=== PATIENT | male | born 1970 | race Two or more races ===

== ENCOUNTER 2018-08-25 14:27 | Emergency (ER) | payer OTHER ==
[2018-08-25 14:32] VITALS: BP 145/80; PULSE 103; TEMP 98.1; BMI 43.3
--- NOTE | 2018-08-25 15:03 | PDOC ---
History of Present Illness - General Chief Complaint: Respiratory Stated Complaint: FLU SYSMPTOMS Time Seen by Provider: 08/25/18 14:34 History Source: Patient Exam Limitations: No Limitations Past History - Past Medical History Allergies/Adverse Reactions: Allergies Allergy/AdvReac Type Severity Reaction Status Date / Time No Known Allergies Allergy Verified 08/25/18 14:32 Home Medications: Ambulatory Orders Aspirin [Ecotrin] 81 mg PO DAILY 01/15/16 Lisinopril [Zestril] 5 mg PO DAILY 01/15/16 COPD: No GI Disorders: Yes (DIVERTICULITIS) HTN: Yes Hypercholesterolemia: Yes - Surgical History Abdominal Surgery: Yes (COLOSTOMY) - Suicide/Smoking/Psychosocial Hx Smoking History: Never smoked Hx Alcohol Use: No Drug/Substance Use Hx: No Substance Use Type: None *Physical Exam - Vital Signs Last Vital Signs Temp Pulse Resp BP Pulse Ox 98.1 F 103 H 20 145/80 99 08/25/18 14:29 08/25/18 14:29 08/25/18 14:29 08/25/18 14:29 08/25/18 14:29 - Physical Exam General Appearance: No: Apparent Distress HEENT: positive: Nasal Congestion, Rhinorrhea (slight), Other (+postnasal drip) . negative: Muffled/Hoarse voice, Pharyngeal Erythema, Tonsillar Exudate, Sinus Tenderness Respiratory/Chest: positive: Lungs Clear, Normal Breath Sounds. negative: Respiratory Distress Cardiovascular: positive: Regular Rhythm, Regular Rate, S1, S2. negative: Murmur Extremity: positive: Normal Inspection. negative: Pedal Edema, Calf Tenderness Neurologic: positive: Alert, Normal Mood/Affect Moderate Sedation - Procedure Monitoring Vital Signs: Procedure Monitoring Vital Signs Temperature 98.1 F 08/25/18 14:29 Pulse Rate 103 H 08/25/18 14:29 Respiratory Rate 20 08/25/18 14:29 Blood Pressure 145/80 08/25/18 14:29 O2 Sat by Pulse Oximetry (%) 99 08/25/18 14:29 Medical Decision Making - Medical Decision Making 48 y/o M hx of HTN, DM, diverticulitis s/p colostomy (around 7 years ago) presents with productive cough x 3 days along with nasal congestion, rhinorrhea. Went to yesterday, diagnosed with allergic rhinitis, and given rx for Flonase and Singulair, but has not noticed much help with that (has only used meds 1 thus far). Denies fever, sob, cp, abd pain, n/v/d, sore throat, body aches, chills. Did not take antipyretics today PE consistent with allergic rhinitis Supportive care discussed 08/25/18 14:58 *DC/Admit/Observation/Transfer Diagnosis at time of Disposition: Allergic rhinitis Qualifiers: Allergic rhinitis trigger: unspecified Allergic rhinitis seasonality: unspecified Qualified Code(s): J30.9 - Allergic rhinitis, unspecified - Discharge Dispostion Disposition: HOME Condition at time of disposition: Stable Decision to Admit order: No - Referrals Referrals: ON STAFF,NOT [Primary Care Provider] - - Patient Instructions Printed Discharge Instructions: DI for Allergic Rhinitis Additional Instructions: Thank you for choosing [facility]. It was a pleasure taking care of you. Likely you have allergies. Your coughing is from the postnasal drip Continue the Flonase spray and Singulair Can also try the Nedi-pot - helps alleviate congestion Use humidifier at night if needed Can also try Zyrtec or Claritin as needed to help with allergies Follow-up with your doctor in 2-3 days Return to the Emergency Department if your symptoms worsen or persist or have other concerning symptoms. - Post Discharge Activity
== END 2018-08-25 15:09 | disposition home or self-care (01) ==
LOC: JERFT 14:27
DX: J30.9 Allergic rhinitis, unspecified (principal)
CPT/HCPCS: 99281-25

== ENCOUNTER 2020-03-09 08:34 | Inpatient (IN) | payer OTHER ==
--- NOTE | 2020-03-09 08:45 | PDOC ---
History of Present Illness - General Chief Complaint: Pain, Acute Stated Complaint: LWR BACK PAIN (EXTREME) Time Seen by Provider: 03/09/20 08:44 - History of Present Illness Initial Comments: 49 YOM h/o diabetes, colostomy, htn presents with abdominal pain since 12 am. Pain is located in back and abdomen on right side, 9/10, nothing makes better or worse, also with nausea, chills and shortness of breath. Denies CP, fever, vomi ting, diarrhea. Blood in stool. Unable to urinate since this time. Previously observed blood in urine. Was dcd by Dr Ramirez with stone 2 weeks prior, was scheduled for management March,. Symptoms resolved until last night. Now pain unbearable. Constitutional: No Weight Change, No Fever, + Chills, No Night Sweats, No Fatigue, No Malaise ENT/Mouth: No Hearing Changes, No Ear Pain, No Nasal Congestion, No Sinus Pain, No Hoarseness, No sore throat, No Rhinorrhea, No Swallowing Difficulty Eyes: No Eye Pain, No Swelling, No Redness, No Foreign Body, No Discharge, No Vision Changes Cardiovascular: No Chest Pain, + SOB, No PND, No Dyspnea on Exertion, No Orthopnea, No Claudication, No Edema, No Palpitations Respiratory: No Cough, No Sputum, No Wheezing, No Smoke Exposure, No Dyspnea Gastrointestinal: + Nausea, No Vomiting, No Diarrhea, No Constipation, + Pain, No Heartburn, No Anorexia, No Dysphagia, No Hematochezia, No Melena, No Flatulence, No Jaundice Genitourinary: No Dysmenorrhea, No DUB, No Dyspareunia, No Dysuria, + Urinary Frequency, + Hematuria, No Urinary Incontinence, + Urgency, No Flank Pain, No Urinary Flow Changes, No Hesitancy Musculoskeletal: No Arthralgias, No Myalgias, No Joint Swelling, No Joint Stiffness, No Back Pain, No Neck Pain, No Injury History Skin: No Skin Lesions, No Pruritis, No Hair Changes, No Breast/Skin Changes, No Nipple Discharge Neuro: No Weakness, No Numbness, No Paresthesias, No Loss of Consciousness, No Syncope, No Dizziness, No Headache, No Coordination Changes, No Recent Falls Psych: No Anxiety/Panic, No Depression, No Insomnia, No Personality Changes, No Delusions, No Rumination, No SI/HI/AH/VH, No Social Issues, No Memory Changes, No Violence/Abuse Hx., No Eating Concerns Heme/Lymph: No Bruising, No Bleeding, No Transfusions History, No Lymphadenopathy Endocrine: No Polyuria, No Polydipsia, No Temperature Intolerance 03/09/20 09:16 Past History - Medical History Allergies/Adverse Reactions: Allergies Allergy/AdvReac Type Severity Reaction Status Date / Time pollen extracts Allergy Verified 03/09/20 17:29 Home Medications: Ambulatory Orders Lisinopril [Zestril] 10 mg PO DAILY 01/15/16 Tamsulosin HCl 0.4 mg PO DAILY 03/09/20 metFORMIN HCL [Metformin HCl] 500 mg PO BID 03/09/20 Ketorolac Tromethamine 10 mg PO Q6H #12 tablet 03/11/20 Nitrofurantoin Monohyd/M-Cryst [Macrobid -] 100 mg PO BID #20 capsule 03/11/20 Oxybutynin Chloride [Oxybutynin Chloride ER] 10 mg PO DAILY #7 tab.er.[id number] 01/21 COPD: No Diabetes: Yes GI Disorders: Yes (DIVERTICULITIS) HTN: Yes Hypercholesterolemia: Yes - Surgical History Abdominal Surgery: Yes (COLOSTOMY) - Immunization History Immunization Up to Date: Yes - Psycho-Social/Smoking History Smoking History: Never smoked - Substance Abuse Hx (Audit-C & DAST Scrn) How often the patient has a drink containing alcohol: Never Score: In Men: 4 or > Positive; In Women: 3 or > Positive: 0 Screen Result (Pos requires Nsg. Audit-10AR): Negative In the last yr the pt used illegal drug/Rx for NonMed reason: No Score: Yes response is considered Positive: 0 Screen Result (Positive result requires Nsg. DAST-10): Negative *Physical Exam - Vital Signs Last Vital Signs Temp Pulse Resp BP Pulse Ox 98.3 F 72 18 151/87 99 03/09/20 08:36 03/09/20 08:36 03/09/20 08:36 03/09/20 08:36 03/09/20 08:36 - Physical Exam General Appearance: Yes: Nourished, Appropriately Dressed, Apparent Distress, Other (Patient is shifting position frequently in bed unable to find comfortable position, appears in significant discomfort) HEENT: positive: EOMI, RUFINA, Normal ENT Inspection, Normal Voice, Symmetrical, TMs Normal, Pharynx Normal Neck: positive: Trachea midline, Normal Thyroid, Supple Respiratory/Chest: positive: Lungs Clear, Normal Breath Sounds, Respiratory Distress, Accessory Muscle Use Cardiovascular: positive: Regular Rhythm, Regular Rate, S1, S2 Gastrointestinal/Abdominal: positive: Normal Bowel Sounds, Tender, Flat, Soft, Tenderness Musculoskeletal: positive: Normal Inspection, CVA Tenderness Extremity: positive: Normal Capillary Refill, Normal Inspection, Normal Range of Motion Integumentary: positive: Normal Color, Dry, Warm Neurologic: positive: cloth weaver II-XII NML intact, Fully Oriented, Alert, Normal Mood/Affect, Normal Response, Motor Strength 10/06 ED Treatment Course - LABORATORY CBC & Chemistry Diagram: 03/11/20 07:06 03/11/20 07:06 Medical Decision Making - Medical Decision Making 49 YOM presents with right sided abdominal pain since midnight last night - vitals wnl - exam reveals obese male, writhing in bed, unable to find comfortable position, positive for TTP along right flank and right CVA tenderness - h/o recent kidney stone diagnosis, multiple CV and GI risk factors - will do CBC, CMP, BG, lipase, lacte, type and screen, coags, CXR, EKG, CT ab domen and pelvis with contrast - 6 mg morphine for pain control given patients size and intensity of reported pain - will reassess 03/09/20 10:52 patient has white count of 20.6 will give IV toradol 30mgs EKG shows normal sinus RRR 03/09/20 13:01 cxr shows new density medial right base UA 3+ blood 03/09/20 13:02 03/09/20 13:05 03/09/20 13:21 CT demonstrates .4cm stone with hydronephrosis on right side will call Dr. Ramirez and appreciate recs 03/09/20 13:25 Spoke with attending covering Dr. Ramirez patient who recommended admission for IV abx with [facility] Discharge - Discharge Information Problems reviewed: Yes Clinical Impression/Diagnosis: Kidney stone, Perinephric fluid collection Leukocytosis Qualifiers: Leukocytosis type: unspecified Qualified Code(s): D72.829 - Elevated white blood cell count, unspecified Condition: Improved Disposition: HOME - Follow up/Referral - Patient Discharge Instructions - Post Discharge Activity
[2020-03-09] MEDS ORDERED: morphine SULFATE 4 MG/ML VIAL IVPUSH ONE (09:00)
[2020-03-09] MEDS ORDERED: LACTATED RINGERS SOLUTION 1000 ML INFUS.BAG IV ONE (09:12)
[2020-03-09] MEDS ORDERED: morphine SULFATE 4 MG/ML VIAL ONE (09:25)
[2020-03-09] MEDS ORDERED: MORPHINE SULFATE 2 MG/ML VIAL ONE (09:25)
[2020-03-09 09:27] LABS: BASO % 0.4 % (0-2.0); EOS % 0.3 % (0-4.5); HEMATOCRIT 43.6 % (35.4-49); HEMOGLOBIN 14.2 GM/dL (11.7-16.9); LYMPH % 8.3 % (8-40); MCH 28.2 pg (25.7-33.7); MCHC 32.6 g/dl (32.0-35.9); MEAN CELL VOLUME 86.5 fl (80-96); MEAN PLT VOLUME 10.2 fl (7.5-11.1); MONO % 4.9 % (3.8-10.2); NEUT % 86.1 % (42.8-82.8); PLATELET COUNT 229 K/MM3 (134-434); RBC 5.04 M/mm3 (4.00-5.60); RDW 13.4 % (11.9-15.9); WHITE BLOOD COUNT 20.6 K/mm3 (4.0-10.0)
--- NOTE | 2020-03-09 09:31 | PDOC ---
Attending Attestation - Resident Resident Name: Yousuf Walton - ED Attending Attestation I have performed the following: I have examined & evaluated the patient, The case was reviewed & discussed with the resident, I agree w/resident's findings & plan, Exceptions are as noted - HPI HPI: 49 yo M history DM, colostomy, HTN presents with abdominal pain that started while he was working at 12am. Patient is a maintenance truck driver. Pain was abrupt onset, severe, sharp, localized to R upper abdomen and back, radiating down to R groin. +History of prior kidney stone. - Physicial Exam PE: GENERAL: Awake, alert, and fully oriented, in no acute distress HEAD: No signs of trauma EYES: PERRLA, EOMI, sclera anicteric, conjunctiva clear ENT: Auricles normal inspection, hearing grossly normal, nares patent, oroph arynx clear without exudates. Moist mucosa NECK: Normal ROM, supple, no lymphadenopathy, JVD, or masses LUNGS: Breath sounds equal, clear to auscultation bilaterally. No wheezes, and no crackles HEART: Regular rate and rhythm, normal S1 and S2, no murmurs, rubs or gallops ABDOMEN: +Large midline incision, well-healed. +Colostomy to L mid-abdomen. No stool in the bag. Soft, normoactive bowel sounds. +Tenderness to R mid-abdomen and R CVA. No guarding, no rebound. No masses EXTREMITIES: Normal range of motion, no edema. No clubbing or cyanosis. No cords, erythema, or tenderness NEUROLOGICAL: Cranial nerves II through XII grossly intact. Normal speech, normal gait. Motor and sensation intact SKIN: Warm, dry, normal turgor, no rashes or lesions noted. - Medical Decision Making Pt presents with suspected kidney stone vs infected stone. In light of his extensive surgical history, however, the DDx is broad. Will obtain labs, UA, and spiral CT to further evaluate. Addendum- CT showed fluid collection around the kidney, stone. Case to be d/w Dr. Ramirez. Plan for admission based on stone, fluid collection, and significant leukocytosis. Discharge - Discharge Information Problems reviewed: Yes Clinical Impression/Diagnosis: Kidney stone, Perinephric fluid collection Leukocytosis Qualifiers: Leukocytosis type: unspecified Qualified Code(s): D72.829 - Elevated white blood cell count, unspecified - Follow up/Referral - Patient Discharge Instructions - Post Discharge Activity
[2020-03-09 09:36] LABS: INR 0.92 (0.83-1.09); PROTHROMBIN TIME (PATIENT) 10.8 SEC (9.7-13.0)
[2020-03-09 09:39] LABS: ACTIVATED PTT 34.1 SECONDS (25.2-36.5)
--- OUTSIDE RECORDS SUMMARY | 2020-03-09 09:45 | XMS ---
:1970 Author Organization [facility] Care Team Providers Name Role Phone ROSIE RODRIGUEZFAROOQMICHAELFAROOQ Unavailable Unavailable Re-disclosure Warning The records that you are about to access may contain information from federally- assisted alcohol or drug abuse programs. If such information is present, then the following federally mandated warning applies: This information has been disclosed to you from records protected by federal confidentiality rules (42 CFR part 2). The federal rules prohibit you from making any further disclosure of this information unless further disclosure is expressly permitted by the written consent of the person to whom it pertains or as otherwise permitted by 42 CFR part 2. A general authorization for the release of medical or other information is NOT sufficient for this purpose. The Federal rules restrict any use of the information to criminally investigate or prosecute any alcohol or drug abuse patient.The records that you are about to access may contain highly sensitive health information, the redisclosure of which is protected by Article 27-F of the [facility] Public Health law. If you continue you may haveaccess to information: Regarding HIV / AIDS; Provided by facilities licensed or operated by the [facility] Office of Mental Health; or Provided by the [facility] Office for People With Developmental Disabilities. If such information is present, then the following [facility] mandated warning applies: This information has been disclosed to you from confidential records which are protected by state law. State law prohibits you from making any further disclosure of this information without the specific written consent of the person to whom it pertains, or as otherwise permitted by law. Any unauthorized further disclosure in violation of state law may result in a fine or penitentiary sentence or both. A general authorization for the release of medical or other information is NOT sufficient authorization for further disclosure. Allergies and Adverse Reactions Type Description Substance Reaction Status Data Source(s ) Food allergy no red meat no red meat Vomiting [facility] Food allergy pollen pollen [facility] Drug allergy No Known Drug No Known Drug [facility] Allergies Allergies [facility] Encounters Encounter Providers Location Date Indications Data Source(s ) Emergency H 02/03/2019 12:22:00 [facility] EDT - 02/03/2019 [facility] 04:31:00 PM EDT Patient discharged. Emergency H 02/01/2019 08:00:00 PM EDT - 019 [facility] 03:14:00 AM EDT Patient discharged. [facility]: [facility] 08/23/2018 01:03:00 PM [facility] 12:00:00 AM [facility] Medications Medication Brand Start Product Dose Route Administrative Pharmacy [facility] Indications Reaction Description Data Name Date Form Instructions Instructions Source(s) Ibuprofen ibupro 1 complet [facility] 400 MG Oral [facility] Tablet 400 mg Medical ibuprofen Tablet [place] 400 mg , Tablet, Ordere Ordered By: d By: Moose Potter MDDirection , s: 1 tablet MDDire oral every ctions six hours : 1 PRN pain tablet oral every six hours PRN pain Insurance Providers Payer name Policy type Policy ID Covered Covered republican's Policy P jass / Coverage republican ID relationship to [employer] Inf ormation type calero O XIOMARA O [id number] 01 [id number] 100 ESSENTIALS- COMMERCIAL XIOMARA W [id number] 01 [id number] 100 XIOMARA [id number] SP [id number] HEALTH NON CAP Problems, Conditions, and Diagnoses Code Display Name Description Problem Type Effective Data Sour ce(s) Dates Z87.891 Personal history PERSONAL HISTORY Diagnosis 02/03/2019 [facility] of nicotine OF NICOTINE 12:22:[address] dependence DEPENDENCE EDT I10 Essential ESSENTIAL Diagnosis 02/03/2019 [facility] (primary) (PRIMARY) 12:22:00 [facility] hypertension HYPERTENSION EDT E11.9 Type 2 diabetes TYPE 2 DIABETES Diagnosis 02/03/2019 [facility] mellitus without MELLITUS WITHOUT 12:22:00 PM edical Center complications COMPLICATIONS EDT R19.5 Other fecal OTHER FECAL Diagnosis 02/03/2019 [facility] abnormalities ABNORMALITIES 12:22:00 PM [facility] EDT Z43.3 Encounter for ENCOUNTER FOR Diagnosis 02/03/2019 [facility] attention to ATTENTION TO 12:22:00 PM Medical C enter colostomy COLOSTOMY EDT M25.561 Pain in right knee PAIN IN RIGHT KNEE Diagnosis 9 [facility] 08:00:00 PM Medical Cent[facility] r EDT M79.18 MYALGIA, OTHER MYALGIA, OTHER Diagnosis 02/01/2019 [facility] SITE SITE 08:00:00 PM Medical Cente r EDT M79.606 Pain in leg, PAIN IN LEG, Diagnosis 02/01/2019 [facility] Eber phs unspecified UNSPECIFIED 08:00:[address] EDT Results ID Date Data Source [id number] 09/16/2019 12:00:00 AM EDT [facility] Name Value Range Interpretation Code Description Data Catalina rce(s) Supporting Document(s ) [facility] XXX SINDY+probe- Imp This lab was ordered by [facility] MON[facility] and reported by [employer] ID Date Data Source Urinalysis.[id number] 02/03/2019 02:08:00 PM EDT [facility] 0 Name Value Range Interpretation Description Data Sup porting Code Source(s) Document(s ) Color of Urine YELLOW <content Saint styleCode="Denise Alyssia d">Color, Medical Urine Center </content>YELL OW <content styleCode="Emeli lics"> (YELLOW )</content> UNK CLEAR <content Saint styleCode="Denise Alyssia d">Urine Medical Clarity Center </content>SHANTI R <content styleCode="Emeli lics"> (CLEAR )</content> Glucose NEGATIVE <content Saint [Mass/volume] styleCode="Denise Alyssia in Urine by d">Urine Medical Test strip Glucose Center </content>NEGA TIVE MG/DL<content styleCode="Emeli lics"> (NEGATIVE MG/DL)</conten t> Protein NEGATIVE <content Saint [Mass/volume] styleCode="Denise Alyssia in Urine by d">Urine Medical Test strip Protein Center </content>NEGA TIVE MG/DL<content styleCode="Emeli lics"> (NEGATIVE MG/DL)</conten t> pH of Urine by 4.5-8.0 <content Saint Test strip styleCode="Denise Alyssia d">Urine pH Medical </content>6.0 Center <content styleCode="Emeli lics"> (4.5-8.0 )</content> Hemoglobin NEGATIVE <content Saint [Presence] in styleCode="Denise Alyssia Urine by Test d">Urine Blood Medical strip </content>NEGA Center TIVE <content styleCode="Emeli lics"> (NEGATIVE )</content> UNK NEGATIVE <content Saint styleCode="Denise Alyssia d">Urine Medical Bilirubin Center </content>NEGA TIVE <content styleCode="Emeli lics"> (NEGATIVE )</content> Ketones NEGATIVE <content Saint [Mass/volume] styleCode="Denise Alyssia in Urine by d">Urine Medical Test strip Ketone Center </content>NEGA TIVE MG/DL<content styleCode="Emeli lics"> (NEGATIVE MG/DL)</conten t> Specific 1.015-1.02 <content Saint gravity of 5 styleCode="Denise Vaughns Urine by Test d">Urine Medical strip Specific Center [place] </content>1.02 5 <content styleCode="Emeli lics"> (1.015-1.025 )</content> Nitrite NEGATIVE <content Saint [Presence] in styleCode="Denise Vaughns Urine by Test d">Urine Medical strip Nitrite Center </content>NEGA TIVE <content styleCode="Emeli lics"> (NEGATIVE )</content> Urobilinogen 0.2-1.0 <content Saint [Units/volume] styleCode="Denise Alyssia in Urine by d">Urine Medical Test strip Urobilinogen Center </content>0.2 MG/DL<content styleCode="Emeli lics"> (0.2-1.0 MG/DL)</conten t> Leukocyte NEGATIVE <content Saint esterase styleCode="Denise Alyssia [Presence] in d">Urine Medical Urine by Test Leukocyte Center strip </content>NEGA TIVE <content styleCode="Emeli lics"> (NEGATIVE )</content> ID Date Data Source HematologyRou.[id number] 02/03/2019 01:01:00 PM EDT [facility] 0400 Name Value Range Interpretation Description Data Sup porting Code Source(s) Document(s ) Leukocytes 4.4-11.0 <content Saint [#/volume] in styleCode="Bold Alyssia Blood by ">White Blood Medical Automated count Cell Count Center </content>10.07 KCUMM<content styleCode="Ital ics"> (4.4-11.0 KCUMM)</content > Hemoglobin 13.5-17. <content Saint [Mass/volume] in 5 styleCode="Bold Alyssia Blood ">Hemoglobin Medical </content>14.0 Center G/DL<content styleCode="Ital ics"> (13.5-17.5 G/DL)</content> Hematocrit 41.0-53. <content Saint [Volume 0 styleCode="Bold Alyssia Fraction] of ">Hematocrit Medical Blood by </content>44.1 Center Automated count %<content styleCode="Ital ics"> (41.0-53.0 %)</content> Erythrocyte mean 80.0-100 <content Saint corpuscular .0 styleCode="Bold Alyssia volume [Entitic ">Mean Medical volume] by Corpuscular Center Automated count Volume </content>87.8 FL<content styleCode="Ital ics"> (80.0-100.0 FL)</content> Erythrocyte mean 26.0-34. <content Saint corpuscular 0 styleCode="Bold Alyssia hemoglobin ">Mean Medical [Entitic mass] Corposcular Center by Automated Hemoglobin count </content>27.9 PG<content styleCode="Ital ics"> (26.0-34.0 PG)</content> Erythrocytes 4.4-5.9 <content Saint [#/volume] in styleCode="Bold Alyssia Blood by ">Red Blood Medical Automated count Cell Count Center </content>5.02 MCUMM<content styleCode="Ital ics"> (4.4-5.9 MCUMM)</content > Erythrocyte 11.5-14. <content Saint distribution 5 styleCode="Bold Alyssia width [Ratio] by ">Red Cell Medical Automated count Distribution Center Width </content>13.3 %<content styleCode="Ital ics"> (11.5-14.5 %)</content> Platelet mean 8.0-11.0 Above high <content Saint volume [Entitic normal styleCode="Bold Alyssia volume] in Blood ">Mean Platelet Medical by Automated Volume Center count </content>11.8 FL H<content styleCode="Ital ics"> (8.0-11.0 FL)</content> Erythrocyte mean 32.0-37. Below low normal <content Saint corpuscular 0 styleCode="Bold Alyssia hemoglobin ">Mean Corpus. Medical concentration Hgb Center [Mass/volume] by Concentration Automated count (MCHC) </content>31.7 G/DL L<content styleCode="Ital ics"> (32.0-37.0 G/DL)</content> UNK 0 <content Saint styleCode="Bold Alyssia ">Nucleated Red Medical Blood Cell Center </content>0.0 /100<content styleCode="Ital ics"> (0 /100)</content> Platelets 130-400 <content Saint [#/volume] in styleCode="Bold Alyssia Blood by ">Platelet Medical Automated count Count Center </content>226 KCUMM<content styleCode="Ital ics"> (130-400 KCUMM)</content > UNK 0.0 <content Saint styleCode="Bold Alyssia ">Nucleated Red Medical Blood Cell Center Count </content>0.00 KCUMM<content styleCode="Ital ics"> (0.0 KCUMM)</content > ID Date Data Source GFR(Creatinine).[id number] 02/03/2019 01:01:00 PM EDT [facility] 0-0400 Name Value Range Interpretation Code Description Data Catalina rce(s) Supporting Document(s ) UNK > 60 <content [facility] styleCode="Bold"> Medical Cent er EGFR </content>128 GFR<content styleCode="Italic s"> (> 60 GFR)</content> ID Date Data Source Coagulation 02/03/2019 01:01:00 PM [facility] Rout.[id number] EDT Name Value Range Interpretation Description Data Sup porting Code Source(s) Document(s ) UNK 9.0-13.0 <content Saint styleCode="Bold" Alyssia >Protime Medical </content>10.6 Center SEC<content styleCode="Itali cs"> (9.0-13.0 SEC)</content> aPTT in 25.1-36. <content Saint Platelet poor 5 styleCode="Bold" Alyssia plasma by >Partial Medical Coagulation Thromboplastin Center assay Time </content>32.9 SEC<content styleCode="Itali cs"> (25.1-36.5 SEC)</content> INR in 0.80-1.2 <content Saint Platelet poor 0 styleCode="Bold" Alyssia plasma by >INR Medical Coagulation </content>0.95 Center assay #<content styleCode="Itali cs"> (0.80-1.20 #)</content> ID Date Data Source BMP.[id number] 02/03/2019 01:01:00 PM EDT [facility] Name Value Range Interpretation Description Data Sup porting Code Source(s) Document(s ) Sodium 137-145 <content Saint [Moles/volume] styleCode="Denise Alyssia in Serum or d">Sodium Medical Plasma </content>139 Center MEQ/L<content styleCode="Emeli lics"> (137-145 MEQ/L)</conten t> Potassium 3.5-5.3 <content Saint [Moles/volume] styleCode="Denise Alyssia in Serum or d">Potassium Medical Plasma </content>4.5 Center MEQ/L<content styleCode="Emeli lics"> (3.5-5.3 MEQ/L)</conten t> UNK 9-20 <content Saint styleCode="Denise Alyssia d">BUN Medical </content>19 Center MG/DL<content styleCode="Emeli lics"> (9-20 MG/DL)</conten t> Glucose 74-106 <content Saint [Mass/volume] styleCode="Denise Vaughns in Serum or d">Glucose Medical Plasma </content>88 Center MG/DL<content styleCode="Emeli lics"> (74-106 MG/DL)</conten t> Creatinine 0.5-1.3 <content Saint [Mass/volume] styleCode="Denise Vaughns in Serum or d">Creatinine Medical Plasma </content>0.7 Center MG/DL<content styleCode="Emeli lics"> (0.5-1.3 MG/DL)</conten t> Carbon 22-30 <content Saint dioxide, total styleCode="Denise Cade [Moles/volume] d">Carbon Medical in Serum or Dioxide Center Plasma </content>24 MEQ/L<content styleCode="Emeli lics"> (22-30 MEQ/L)</conten t> Chloride 98-107 <content Saint [Moles/volume] styleCode="Denise Vaughns in Serum or d">Chloride Medical Plasma </content>105 Center MEQ/L<content styleCode="Emeli lics"> (98-107 MEQ/L)</conten t> Calcium 8.4-10.2 <content Saint [Mass/volume] styleCode="Denise Vaughns in Serum or d">Calcium Medical Plasma </content>9.5 Center MG/DL<content styleCode="Emeli lics"> (8.4-10.2 MG/DL)</conten t> UNK > 60 <content Saint styleCode="Denise Vaughns d">EGFR Medical </content>128 Center GFR<content styleCode="Emeli lics"> (> 60 GFR)</content> Procedure Social History Code Duration Value Status Description Data Source(s ) Smoking 02/03/2019 12:53:00 Former Smoker completed Former Smoker [facility] Smoking 02/03/2019 12:34:00 Former Smoker completed Former Smoker [facility] Smoking 02/01/2019 09:05:00 Former Smoker completed Former Smoker [facility] Smoking 02/01/2019 08:58:00 Former Smoker completed Former Smoker [facility] Smoking 02/01/2019 08:04:00 Former Smoker completed Former Smoker [facility] Vital Signs ID Date Data Source UNK Name Value Range Interpretation Code Description Data Source(s) Body temperature 36.464679 36.600050 [facility] Respiratory rate 18 /min 18 /min [facility] Oxygen saturation 98 % 98 % [facility] Arterial blood [facility] by Pulse oximetry Heart rate 68 /min 68 /min [facility] Diastolic blood 92 mm[Hg] 92 mm[Hg] [facility] Systolic blood 141 mm[Hg] 141 mm[Hg] [facility] Body temperature 36.004750 36.365418 [facility] Respiratory rate 20 /min 20 /min [facility] Oxygen saturation 95 % 95 % [facility] Arterial blood [facility] Center by Pulse oximetry Heart rate 71 /min 71 /min [facility] Diastolic blood 95 mm[Hg] 95 mm[Hg] [facility] Systolic blood 142 mm[Hg] 142 mm[Hg] [facility] Body weight 136.539928 136.827745 kg [facility] Measured kg Medical Center Body temperature 36.936344 36.769894 [facility] Respiratory rate 20 /min 20 /min [facility] Oxygen saturation 96 % 96 % [facility] by Pulse oximetry Heart rate 86 /min 86 /min [facility] Diastolic blood 94 mm[Hg] 94 mm[Hg] [facility] Systolic blood 154 mm[Hg] 154 mm[Hg] [facility] Patient Treatment Plan of Care Planned Activity Planned Date Details Description Data Source (s) Ibuprofen 400 MG Oral [facility]
[2020-03-09 10:06] LABS: ALBUMIN 3.7 g/dl (3.4-5.0); ALK PHOS 87 U/L (45-117); ANION GAP 10 MMOL/L (8-16); BILIRUBIN,TOTAL 0.3 mg/dL (0.2-1); BLOOD UREA NITROGEN 15.9 mg/dL (7-18); CHLORIDE 104 mmol/L (98-107); CO2 22 mmol/L (21-32); CREATININE 1.2 mg/dL (0.55-1.3); GLUCOSE,RANDOM 115 mg/dL (74-106); LIPASE 71 U/L (73-393); POTASSIUM 4.5 mmol/L (3.5-5.1); SGOT/AST 25 U/L (15-37); SGPT/ALT 38 U/L (13-61); SODIUM 137 mmol/L (136-145)
[2020-03-09 10:35] LABS: ANISOCYTOSIS 0; MACROCYTOSIS 0; PLATELET ESTIMATE NORMAL
[2020-03-09] MEDS ORDERED: KETOROLAC TROMETHAMINE 30 MG/1 ML VIAL IVPUSH ONE (10:53)
[2020-03-09] MEDS ORDERED: KETOROLAC TROMETHAMINE 30 MG/1 ML VIAL ONE (11:05)
[2020-03-09 11:10] LABS: EPI CELLS 5 /uL (0-25.1); HYALINE CASTS 2 /uL (0-3.1); URINE APPEARANCE CLEAR; URINE BACTERIA 4 /uL (0-1359); URINE BILIRUBIN NEGATIVE (NEGATIVE); URINE COLOR YELLOW; URINE GLUCOSE (UA) NEGATIVE (NEGATIVE); URINE KETONE NEGATIVE (NEGATIVE); URINE LEUK ESTERASE NEGATIVE (NEGATIVE); URINE NITRITE NEGATIVE (NEGATIVE); URINE PROTEIN 1+ (NEGATIVE); URINE RBC 659 /uL (0-23.9); URINE UROBILINOGEN 0.2 mg/dL (0.2-1.0); URINE WBC 10 /uL (0-25.8)
[2020-03-09] MEDS ORDERED: CEFAZOLIN 1 GM in DEXTROSE 5%-WATER - 50 ML IVPB ONE (13:26)
[2020-03-09] MEDS ORDERED: CEFAZOLIN 1 GM/D5W 1 GM/50 ML BAG ONE (14:21)
--- NOTE | 2020-03-09 14:22 | HP ---
<Jj Bird - Last Filed: 03/10/20 06:40> CHIEF COMPLAINT: right flank pain PCP: HISTORY OF PRESENT ILLNESS: Patient is a 49 year old male with history of nephrolithiasis, hypertension, diabetes mellitus (non insulin dependent), diverticulitis (s/p colostomy), presents with complaint of right flank pain. Endorses pain began last night and was sharp, waxing and waning pain that has progressively worsened. He endorses dysuria last night with an episode of difficulty passing urine. He states that he is currently passing urine in the ED with improvement of the dysuria. He endorses a cystoscopy performed two weeks ago at his urologist office where he was evaluated for hematuria, and was told this was secondary to nephrolithiasis. Patient denies subjective fevers, chills, shortness of breath, chest pain, palpitations, abdominal pain, vomiting. ER course was notable for: (1) CT abdomen pelvis (2) (3) Recent Travel: denies PAST MEDICAL HISTORY: nephrolithiasis, hypertension, diabetes mellitus, diverticulitis PAST SURGICAL HISTORY: colostomy (at 40 years old) Social History: Lives with . Works as a forklift driver. Independent in activities of daily living Smoking: Former smoker, quit 13 years ago. Endorses approx 10 pack year history. Alcohol: Denies alcohol consumption Drugs: Denies illicit drug use Allergies No Known Allergies Allergy (Verified 03/09/20 08:36) HOME MEDICATIONS: Home Medications Medication Instructions Recorded Aspirin [Ecotrin] 81 mg PO DAILY 01/15/16 Lisinopril [Zestril] 5 mg PO DAILY 01/15/16 REVIEW OF SYSTEMS As per HPI PHYSICAL EXAMINATION Vital Signs - 24 hr 03/09/20 03/09/20 08:36 09:30 Temperature 98.3 F Pulse Rate 72 Pulse Rate [ 78 Left Radial] Respiratory 18 20 Rate Blood Pressure 151/87 Blood Pressure 153/101 H [Left Arm] O2 Sat by Pulse 99 99 Oximetry (%) GENERAL: The patient is awake, alert, and fully oriented, in no acute distress. HEAD: Normocephalic, atraumatic. EYES: PERRL, extraocular movements intact, sclera anicteric, conjunctiva clear. ENT: Oropharynx clear, without erythema or exudates. Moist mucous membranes. NECK: Trachea midline, full range of motion. Supple without lymphadenopathy. LUNGS: Breath sounds equal, clear to auscultation bilaterally. No wheezes, no crackles. No accessory muscle use. HEART: Regular rate and rhythm. S1, S2 without murmur, rub or gallop. ABDOMEN: Obese abdomen. Soft, nontender to light and deep palpation x4 quadrants. No rebound tenderness, no guarding. Normoactive bowel sounds x4 quadrants. Colostomy bag in situ. Negative suprapubic tenderness. Negative CVA tenderness (however patient has received Morphine prior to my exam). EXTREMITIES: 2+ radial, dorsalis pedis pulses bilaterally. Warm, well-perfused. No lower extremity edema bilaterally. NEUROLOGICAL: Cranial nerves II through XII grossly intact. Normal speech. No gross focal deficits. PSYCH: Normal mood, normal affect upon my encounter. SKIN: Warm, dry. Midline vertical abdominal scar well healed, intact. Left lower quadrant scar from prior colostomy. Laboratory Results - last 24 hr 03/09/20 03/09/20 03/09/20 09:08 09:15 09:15 WBC 20.6 H RBC 5.04 Hgb 14.2 Hct 43.6 MCV 86.5 MCH 28.2 MCHC 32.6 RDW 13.4 Plt Count 229 MPV 10.2 Absolute Neuts (auto) 17.8 H Neutrophils % 86.1 H Neutrophils % (Manual) 81.0 Band Neutrophils % 3.0 Lymphocytes % 8.3 D Lymphocytes % (Manual) 11.0 Monocytes % 4.9 Monocytes % (Manual) 4 Eosinophils % 0.3 Eosinophils % (Manual) 0.0 Basophils % 0.4 Basophils % (Manual) 0.0 Myelocytes % (Man) 0 Promyelocytes % (Man) 0 Blast Cells % (Manual) 0 Nucleated RBC % 0 Metamyelocytes 0 Hypochromia 0 Platelet Estimate Normal Polychromasia 0 Poikilocytosis 0 Anisocytosis 0 Microcytosis 0 Macrocytosis 0 PT with INR 10.80 INR 0.92 PTT (Actin FS) 34.1 Sodium Potassium Chloride Carbon Dioxide Anion Gap BUN Creatinine Est GFR (CKD-EPI)AfAm Est GFR (CKD-EPI)NonAf Random Glucose Lactic Acid 1.6 Calcium Total Bilirubin AST ALT Alkaline Phosphatase Creatine Kinase Troponin I Total Protein Albumin Lipase Beta-Hydroxybutyrate Urine Color Urine Appearance Urine pH Ur Specific [place] Urine Protein Urine Glucose (UA) Urine Ketones Urine Blood Urine Nitrite Urine Bilirubin Urine Urobilinogen Ur Leukocyte Esterase Urine WBC (Auto) Urine RBC (Auto) Urine Casts (Auto) U Epithel Cells (Auto) Urine Bacteria (Auto) Blood Type Antibody Screen 03/09/20 03/09/20 03/09/20 09:15 09:15 10:45 WBC RBC Hgb Hct MCV MCH MCHC RDW Plt Count MPV Absolute Neuts (auto) Neutrophils % Neutrophils % (Manual) Band Neutrophils % Lymphocytes % Lymphocytes % (Manual) Monocytes % Monocytes % (Manual) Eosinophils % Eosinophils % (Manual) Basophils % Basophils % (Manual) Myelocytes % (Man) Promyelocytes % (Man) Blast Cells % (Manual) Nucleated RBC % Metamyelocytes Hypochromia Platelet Estimate Polychromasia Poikilocytosis Anisocytosis Microcytosis Macrocytosis PT with INR INR PTT (Actin FS) Sodium 137 Potassium 4.5 Chloride 104 Carbon Dioxide 22 Anion Gap 10 BUN 15.9 Creatinine 1.2 Est GFR (CKD-EPI)AfAm 82.38 Est GFR (CKD-EPI)NonAf 71.08 Random Glucose 115 H Lactic Acid Calcium 9.0 Total Bilirubin 0.3 AST 25 ALT 38 Alkaline Phosphatase 87 Creatine Kinase 135 Troponin I < 0.02 Total Protein 7.0 Albumin 3.7 Lipase 71 L Beta-Hydroxybutyrate 2.4 Urine Color Yellow Urine Appearance Clear Urine pH 5.0 Ur Specific [place] 1.011 Urine Protein 1+ H Urine Glucose (UA) Negative Urine Ketones Negative Urine Blood 3+ H Urine Nitrite Negative Urine Bilirubin Negative Urine Urobilinogen 0.2 Ur Leukocyte Esterase Negative Urine WBC (Auto) 10 Urine RBC (Auto) 659 Urine Casts (Auto) 2 U Epithel Cells (Auto) 5 Urine Bacteria (Auto) 4 Blood Type O POSITIVE Antibody Screen Negative ASSESSMENT/PLAN: Patient is a 49 year old male with history of nephrolithiasis, hypertension, diabetes mellitus (non insulin dependent), diverticulitis (s/p colostomy), presents with complaint of right flank pain. Acute complicated urinary tract infection, secondary to nephrolithiasis -UA reveals -CT abdomen, pelvis -Follow urine culture, blood culture -Will initiate Ancef 1 gram Q 8 hours, per Urology recommendations -Hydrate with IV normal saline at 75mL/ hour while NPO -Monitor intake, output -Strain urine to collect stone -Continue home Tamsulosin -Pain control with Ofirmev, Morphine -Urology evaluation (Dr. Ramirez) appreciated. -ID consult (Dr. Morocho) requested History of hypertension -Continue home Lisinopril Diabetes mellitus -Obtain HgbA1c -Holding home Metformin. -Insulin sliding scale, fingerstick BGM Q8H FEN -IV normal saline at 75mL/ hour -Follow BMP -NPO, pending urology evaluation Prophylaxis -SCDs bilateral lower extremities. Holding chemical anticoagulation, pending Urology evaluation Disposition -Admit to medical- surgical floor. Family Medical History Family History: Unremarkable Visit type - Emergency Visit Emergency Visit: Yes ED Registration Date: 03/09/20 Care time: The patient presented to the Emergency Department on the above date and was hospitalized for further evaluation of their emergent condition. - New Patient This patient is new to me today: Yes Date on this admission: 03/09/20 - Critical Care Critical Care patient: No ATTENDING PHYSICIAN STATEMENT I saw and evaluated the patient. I reviewed the resident's note and discussed the case with the resident. I agree with the resident's findings and plan as documented. SUBJECTIVE: OBJECTIVE: ASSESSMENT AND PLAN: <Roderick Santos - Last Filed: 03/11/20 08:45> CHIEF COMPLAINT: PCP: HISTORY OF PRESENT ILLNESS: ER course was notable for: (1) (2) (3) Recent Travel: PAST MEDICAL HISTORY: PAST SURGICAL HISTORY: Social History: Smoking: Alcohol: Drugs: Allergies pollen extracts Allergy (Verified 03/09/20 17:29) HOME MEDICATIONS: Home Medications Medication Instructions Recorded Aspirin [Ecotrin] 81 mg PO DAILY 01/15/16 Lisinopril [Zestril] 10 mg PO DAILY 01/15/16 Tamsulosin HCl 0.4 mg PO DAILY 03/09/20 metFORMIN HCL [Metformin HCl] 500 mg PO BID 03/09/20 REVIEW OF SYSTEMS CONSTITUTIONAL: Absent: fever, chills, diaphoresis, generalized weakness, malaise, loss of appetite, weight change HEENT: Absent: rhinorrhea, nasal congestion, throat pain, throat swelling, difficulty swallowing, mouth swelling, ear pain, eye pain, visual changes CARDIOVASCULAR: Absent: chest pain, syncope, palpitations, irregular heart rate, lightheadedness, peripheral edema RESPIRATORY: Absent: cough, shortness of breath, dyspnea with exertion, orthopnea, wheezing, stridor, hemoptysis GASTROINTESTINAL: Absent: abdominal pain, abdominal distension, nausea, vomiting, diarrhea, consti pation, melena, hematochezia GENITOURINARY: Absent: dysuria, frequency, urgency, hesitancy, hematuria, flank pain, genital pain MUSCULOSKELETAL: Absent: myalgia, arthralgia, joint swelling, back pain, neck pain SKIN: Absent: rash, itching, pallor HEMATOLOGIC/IMMUNOLOGIC: Absent: easy bleeding, easy bruising, lymphadenopathy, frequent infections ENDOCRINE: Absent: unexplained weight gain, unexplained weight loss, heat intolerance, cold intolerance NEUROLOGIC: Absent: headache, focal weakness or paresthesias, dizziness, unsteady gait, seizure, mental status changes, bladder or bowel incontinence PSYCHIATRIC: Absent: anxiety, depression, suicidal or homicidal ideation, hallucinations. PHYSICAL EXAMINATION Vital Signs - 24 hr 03/10/20 03/10/20 03/10/20 14:36 14:45 15:00 Temperature 97.0 F L Pulse Rate 74 79 59 L Respiratory 17 11 20 Rate Blood Pressure 123/72 113/61 115/70 O2 Sat by Pulse 97 98 94 L Oximetry (%) 03/10/20 03/10/20 03/10/20 15:15 15:30 15:45 Temperature 97. F L Pulse Rate 60 55 L 56 L Respiratory 12 19 14 Rate Blood Pressure 135/85 107/51 L 142/78 O2 Sat by Pulse 96 96 96 Oximetry (%) 03/10/20 03/10/20 03/10/20 19:01 21:00 22:00 Temperature 98.7 F 97.6 F Pulse Rate 77 78 Respiratory 18 18 Rate Blood Pressure 133/76 140/97 O2 Sat by Pulse 95 93 L 93 L Oximetry (%) 03/11/20 03/11/20 01:45 06:00 Temperature 97.8 F 98.1 F Pulse Rate 77 74 Respiratory 18 18 Rate Blood Pressure 130/83 118/68 O2 Sat by Pulse 94 L 96 Oximetry (%) GENERAL: Awake, alert, and fully oriented, in no acute distress. HEAD: Normal with no signs of trauma. EYES: Pupils equal, round and reactive to light, extraocular movements intact, sclera anicteric, conjunctiva clear. No lid lag. EARS, NOSE, THROAT: Ears normal, nares patent, oropharynx clear without exudates. Moist mucous membranes. NECK: Normal range of motion, supple without lymphadenopathy, JVD, or masses. LUNGS: Breath sounds equal, clear to auscultation bilaterally. No wheezes, and no crackles. No accessory muscle use. HEART: Regular rate and rhythm, normal S1 and S2 without murmur, rub or gallop. ABDOMEN: Soft, nontender, not distended, normoactive bowel sounds, no guarding, no rebound, no masses. No hepatomegaly or splenomegaly. MUSCULOSKELETAL: Normal range of motion at all joints. No bony deformities or tenderness. No CVA tenderness. UPPER EXTREMITIES: 2+ pulses, warm, well-perfused. No cyanosis. No clubbing. No peripheral edema. LOWER EXTREMITIES: 2+ pulses, warm, well-perfused. No calf tenderness. No peripheral edema. NEUROLOGICAL: Cranial nerves II-XII intact. Normal speech. Normal gait. PSYCHIATRIC: Cooperative. Good eye contact. Appropriate mood and affect. SKIN: Warm, dry, normal turgor, no rashes or lesions noted, normal capillary refill. Laboratory Results - last 24 hr 03/09/20 03/10/20 03/10/20 14:25 07:55 07:55 WBC 12.4 H RBC 4.94 Hgb 13.7 Hct 42.3 MCV 85.8 MCH 27.7 MCHC 32.3 RDW 13.3 Plt Count 236 MPV 10.4 PT with INR 11.60 INR 0.98 PTT (Actin FS) 35.3 Sodium Potassium Chloride Carbon Dioxide Anion Gap BUN Creatinine Est GFR (CKD-EPI)AfAm Est GFR (CKD-EPI)NonAf POC Glucometer Random Glucose Hemoglobin A1c % Calcium Phosphorus Magnesium Total Bilirubin AST ALT Alkaline Phosphatase Total Protein Albumin COVID-19 (SINDY) Not detected 03/10/20 03/10/20 03/10/20 07:55 07:55 12:20 WBC RBC Hgb Hct MCV MCH MCHC RDW Plt Count MPV PT with INR INR PTT (Actin FS) Sodium 140 Potassium 4.3 Chloride 107 Carbon Dioxide 27 Anion Gap 7 L BUN 14.6 Creatinine 0.9 Est GFR (CKD-EPI)AfAm 116.65 Est GFR (CKD-EPI)NonAf 100.64 POC Glucometer 70 Random Glucose 86 Hemoglobin A1c % 6.0 Calcium 8.8 Phosphorus 3.7 Magnesium 2.1 Total Bilirubin 0.5 AST 18 ALT 31 Alkaline Phosphatase 74 Total Protein 6.4 Albumin 3.3 L COVID-19 (SINDY) 03/10/20 03/11/20 03/11/20 16:58 07:06 07:06 WBC 12.3 H RBC 4.69 Hgb 13.2 Hct 39.7 MCV 84.6 MCH 28.1 MCHC 33.2 RDW 13.1 Plt Count 222 MPV 10.3 PT with INR INR PTT (Actin FS) Sodium 138 Potassium 4.2 Chloride 106 Carbon Dioxide 26 Anion Gap 6 L BUN 11.4 Creatinine 0.9 Est GFR (CKD-EPI)AfAm 116.65 Est GFR (CKD-EPI)NonAf 100.64 POC Glucometer 88 Random Glucose 91 Hemoglobin A1c % Calcium 8.6 Phosphorus 3.4 Magnesium 2.1 Total Bilirubin AST ALT Alkaline Phosphatase Total Protein Albumin COVID-19 (SINDY) 03/11/20 07:07 WBC RBC Hgb Hct MCV MCH MCHC RDW Plt Count MPV PT with INR INR PTT (Actin FS) Sodium Potassium Chloride Carbon Dioxide Anion Gap BUN Creatinine Est GFR (CKD-EPI)AfAm Est GFR (CKD-EPI)NonAf POC Glucometer 92 Random Glucose Hemoglobin A1c % Calcium Phosphorus Magnesium Total Bilirubin AST ALT Alkaline Phosphatase Total Protein Albumin COVID-19 (SINDY) ASSESSMENT/PLAN: ATTENDING PHYSICIAN STATEMENT I saw and evaluated the patient. I reviewed the resident's note and discussed the case with the resident. I agree with the resident's findings and plan as documented. SUBJECTIVE: OBJECTIVE: ASSESSMENT AND PLAN:
[2020-03-09] MEDS ORDERED: SODIUM CHLORIDE 1,000 ML IV SCH (14:30)
--- NOTE | 2020-03-09 14:45 | EKG ---
Test Reason : Blood Pressure : / mmHG Vent. Rate : 078 BPM Atrial Rate : 078 BPM P-R Int : 148 ms QRS Dur : 084 ms QT Int : 394 ms P-R-T Axes : 062 029 056 degrees QTc Int : 449 ms POOR DATA QUALITY, INTERPRETATION MAY BE ADVERSELY AFFECTED NORMAL SINUS RHYTHM NORMAL ECG WHEN COMPARED WITH ECG OF 15-JAN-2016 14:09, NO SIGNIFICANT CHANGE WAS FOUND Confirmed by MD JONATHAN, ROSE ([id number]) on 03/09/2020 2:45:31 PM Referred By: Confirmed By:ROSE CASTILLO MD
[2020-03-09] MEDS ORDERED: ACETAMINOPHEN 1000 MG/100 ML VIAL (NON FORMULARY) IVPB PRN (15:01)
[2020-03-09] MEDS ORDERED: MORPHINE SULFATE 2 MG/ML VIAL IVPUSH PRN (15:02)
[2020-03-09] MEDS: INSULIN SLIDING SCALE (NOVOLOG) 1 VIAL SQ SCH (16:56)
[2020-03-09 17:25] VITALS: BMI 43.2
[2020-03-10] MEDS: INSULIN SLIDING SCALE (NOVOLOG) 1 VIAL SQ SCH ×3 (06:41→17:15)
[2020-03-10] MEDS ORDERED: SODIUM CHLORIDE 1,000 ML IV SCH (08:49)
[2020-03-10 09:09] LABS: INR 0.98 (0.83-1.09); PROTHROMBIN TIME (PATIENT) 11.6 SEC (9.7-13.0)
[2020-03-10 09:12] LABS: ACTIVATED PTT 35.3 SECONDS (25.2-36.5)
--- NOTE | 2020-03-10 09:27 | CON.GU ---
Consult Consult Specialty:: Urology Reason for Consultation:: Right Renal colic - History Source History Provided By: Patient Limitations to Obtaining History: No Limitations - Alcohol/Substance Use Hx Alcohol Use: No - Smoking History Smoking history: Never smoked Have you smoked in the past 12 months: No Home Medications - Allergies Allergies/Adverse Reactions: Allergies Allergy/AdvReac Type Severity Reaction Status Date / Time pollen extracts Allergy Verified 03/09/20 17:29 - Home Medications Home Medications: Ambulatory Orders Aspirin [Ecotrin] 81 mg PO DAILY 01/15/16 Lisinopril [Zestril] 10 mg PO DAILY 01/15/16 Tamsulosin HCl 0.4 mg PO DAILY 03/09/20 metFORMIN HCL [Metformin HCl] 500 mg PO BID 03/09/20 Physical Exam- Vital Signs: Vital Signs Temperature 98.4 F 03/10/20 05:49 Pulse Rate 18 L 03/10/20 05:49 Respiratory Rate 18 03/10/20 05:49 Blood Pressure 126/77 03/10/20 05:49 O2 Sat by Pulse Oximetry (%) 97 03/10/20 05:49 Assessment/Plan Pt. seen for evaluation of right renal colic. Ct Scan shows a 4mm calc in the upper ureter. Pt had elevated white count.He is on antibiotics. He will be scheduled for cysto and stent placement today.
[2020-03-10 09:30] LABS: ALBUMIN 3.3 g/dl (3.4-5.0); BILIRUBIN,TOTAL 0.5 mg/dL (0.2-1); BLOOD UREA NITROGEN 14.6 mg/dL (7-18); CALCIUM 8.8 mg/dL (8.5-10.1); CREATININE 0.9 mg/dL (0.55-1.3); MAGNESIUM 2.1 mg/dL (1.8-2.4); PHOSPHOROUS 3.7 mg/dL (2.5-4.9); POTASSIUM 4.3 mmol/L (3.5-5.1); TOT PROT 6.4 g/dl (6.4-8.2)
[2020-03-10 09:31] LABS: HEMATOCRIT 42.3 % (35.4-49); HEMOGLOBIN 13.7 GM/dL (11.7-16.9); MCH 27.7 pg (25.7-33.7); MCHC 32.3 g/dl (32.0-35.9); MEAN CELL VOLUME 85.8 fl (80-96); MEAN PLT VOLUME 10.4 fl (7.5-11.1); PLATELET COUNT 236 K/MM3 (134-434); RBC 4.94 M/mm3 (4.00-5.60); RDW 13.3 % (11.9-15.9); WHITE BLOOD COUNT 12.4 K/mm3 (4.0-10.0)
--- NOTE | 2020-03-10 09:41 | CON.ID ---
Consult Consult Specialty:: infectious diseases Referred by:: hospitalist Reason for Consultation:: uti,pain - History of Present Illness Chief Complaint: abd pain,radiating to the groin History of Present Illness: 49 yo M history DM, colostomy, HTN presents with abdominal pain that started while he was working at 12am. Patient is a motor coach bus driver. Pain was abrupt onset, severe, sharp, localized to R upper abdomen and back, radiating down to R groin. patient has a known history of kidney stones patient was admitted urology on board and plan is to go for stenting currently patient feels better - History Source History Provided By: Patient, Medical Record Limitations to Obtaining History: Language Barrier - Alcohol/Substance Use Hx Alcohol Use: No - Smoking History Smoking history: Never smoked Have you smoked in the past 12 months: No Home Medications - Allergies Allergies/Adverse Reactions: Allergies Allergy/AdvReac Type Severity Reaction Status Date / Time pollen extracts Allergy Verified 03/09/20 17:29 - Home Medications Home Medications: Ambulatory Orders Aspirin [Ecotrin] 81 mg PO DAILY 01/15/16 Lisinopril [Zestril] 10 mg PO DAILY 01/15/16 Tamsulosin HCl 0.4 mg PO DAILY 03/09/20 metFORMIN HCL [Metformin HCl] 500 mg PO BID 03/09/20 Review of Systems - Review of Systems Constitutional: reports: No Symptoms Eyes: reports: No Symptoms HENT: reports: No Symptoms Neck: reports: No Symptoms Cardiovascular: reports: No Symptoms Respiratory: reports: No Symptoms Gastrointestinal: reports: No Symptoms Genitourinary: reports: Other Musculoskeletal: reports: No Symptoms Integumentary: reports: No Symptoms Neurological: reports: No Symptoms Endocrine: reports: No Symptoms Hematology/Lymphatic: reports: No Symptoms Psychiatric: reports: No Symptoms Physical Exam Vital Signs: Vital Signs Temperature 98.4 F 03/10/20 05:49 Pulse Rate 18 L 03/10/20 05:49 Respiratory Rate 18 03/10/20 05:49 Blood Pressure 126/77 03/10/20 05:49 O2 Sat by Pulse Oximetry (%) 97 03/10/20 05:49 Constitutional: Yes: Well Nourished, No Distress, Calm, Obese HENT: Yes: Atraumatic, Normocephalic Cardiovascular: Yes: Regular Rate and Rhythm, S1, S2 Respiratory: Yes: Regular, CTA Bilaterally Gastrointestinal: Yes: Normal Bowel Sounds, Soft Renal/: Yes: Other Musculoskeletal: Yes: WNL Extremities: Yes: WNL Neurological: Yes: Alert, Oriented Psychiatric: Yes: Alert, Oriented Labs: CBC, BMP 03/10/20 07:55 03/10/20 07:55 Imaging - Results Chest X-ray: Report Reviewed, Image Reviewed Cat Scan: Report Reviewed, Image Reviewed Assessment/Plan this morbidly obese patient coming wiht kidney stone and hydro with leukocytosis and abd pain plan is to take the patient to the or for s tent placement patient has been started on cefazolin we will continue the abx mpo hydration await for the procedure
[2020-03-10] MEDS ORDERED: TAMSULOSIN HCL 0.4 MG CAP PO SCH (10:00)
[2020-03-10] MEDS ORDERED: LISINOPRIL 10 MG TABLET PO SCH (10:00)
[2020-03-10] MEDS ORDERED: SEVOFLURANE 250 ML BTL ONE (12:36)
[2020-03-10] MEDS ORDERED: PROPOFOL 20 ML ONE ×2 (12:38→12:44)
[2020-03-10] MEDS ORDERED: MIDAZOLAM HCL 2 MG/2 ML SINGLE DOSE VIAL ONE ×3 (12:45→13:50)
[2020-03-10] MEDS ORDERED: ceFAZolin SODIUM 1 GM VIAL IVPB ONE (14:00)
[2020-03-10] MEDS ORDERED: ONDANSETRON 4 MG/2 ML VIAL IVPUSH PRN ×2 (14:11→15:32)
--- NOTE | 2020-03-10 14:28 | PN ---
Teaching Attending Note Name of Resident: Chance Ramirez ATTENDING PHYSICIAN STATEMENT I saw and evaluated the patient. I reviewed the resident's note and discussed the case with the resident. I agree with the resident's findings and plan as documented. SUBJECTIVE: Seen and examined at bedside. Patient reports flank pain is improved. White co unt downtrending. Patient to be taken to the OR today for stenting. OBJECTIVE Last Vital Signs Temp Pulse Resp BP Pulse Ox 98.4 F 18 L 18 126/77 97 03/10/20 05:49 03/10/20 05:49 03/10/20 05:49 03/10/20 05:49 03/10/20 05:49 PE: Per resident note Labs/Imaging: reviewed ASSESSMENT/PLAN 49-year-old male with a history of nephrolithiasis, HTN, diabetes mellitus, diverticulitis status post colostomy presents with complaint of right flank pain found to have nephrolithiasis. #Acute nephrolithiasis with concern for infection White count of 20 on admission, negative urinalysis, Nephrology on board: Appreciate recommendations On cefazolin Continue fluids 4 OR today for stenting #Hypertension Continue home lisinopril #Diabetes mellitus A1c 6.0 Hold home metformin Insulin sliding scale #DVT PPX: SCDs
--- NOTE | 2020-03-10 14:38 | OP ---
Operative Note - Note: Operative Date: 03/10/20 Pre-Operative Diagnosis: rt. hydro, rt. ureteral stone Operation: cysto, rt. retro, rt. stone manipulation and stent placemente Findings: rt. upper ureteral stone with proximal hydro. Post-Operative Diagnosis: Same as Pre-op Surgeon: Morteza Ramirez Anesthesia: Spinal Specimens Removed: urine Estimated Blood Loss (mls): 0 Instrument used (Debridements only): 0 Drains & Tubes with Location: 24cm-6f rt. jj stent Drains, Volume Out (mls): 0 Blood Volume Replaced (mls): 0 Fluid Volume Replaced (mls): 0 Operative Report Dictated: Yes
--- NOTE | 2020-03-10 15:00 | CONS ---
DATE OF CONSULTATION: DATE OF DICTATION: 03/10/2020 HISTORY OF PRESENT ILLNESS: Patient is a 49-year-old male, presents to the emergency room with acute onset of right flank pain. This was colicky in nature, commenced in the right flank and radiated to the right lower quadrant and right groin. Patient does have history of kidney stones in the past. He has undergone extracorporeal shock wave lithotripsy several times. He also has history of diabetes and hypertension, had an episode of diverticulitis with perforation, has a colostomy. Patient had a T-max of 101. His white count is 20,600. A CT scan of the abdomen revealed right hydronephrosis with perirenal fat stranding and a 0.5 cm stone in the upper ureter. There was a nonobstructing stone in the left renal pelvis. PHYSICAL EXAMINATION: Presently patient is in no apparent distress. Abdomen is globus. There is right CVA tenderness. Patient should undergo a right JJ stent placement in preparation for an extracorporeal shock wave lithotripsy. Will also need a stone workup as an outpatient. Will follow with you. Nando [id number]
--- NOTE | 2020-03-10 16:55 | PN ---
Physical Exam: SUBJECTIVE: Patient seen and examined at bedside. Endorsing flank pain has improved. No fevers recorded. OBJECTIVE: Vital Signs Period Temp Pulse Resp BP Sys/Orta Pulse Ox Last 24 Hr 97. F-98.4 F 18-79 - 107-142/51-85 94-98 GENERAL: NAD HEAD: Normal with no signs of trauma. EYES: EOMI Sclera Clear ENT: MMM NECK: Trachea midline, full range of motion, supple. LUNGS: CTAB. HEART: RRR No MRG S1S2 ABDOMEN: No CVA tenderness. Soft NDNT. Colostomy. EXTREMITIES: No CCE NEUROLOGICAL: Cranial nerves II through XII grossly intact. . PSYCH: Normal mood, normal affect. SKIN: Warm, dry, normal turgor, no rashes or lesions noted Laboratory Results - last 24 hr 03/09/20 03/10/20 03/10/20 14:25 06:40 07:55 WBC 12.4 H RBC 4.94 Hgb 13.7 Hct 42.3 MCV 85.8 MCH 27.7 MCHC 32.3 RDW 13.3 Plt Count 236 MPV 10.4 PT with INR INR PTT (Actin FS) Sodium Potassium Chloride Carbon Dioxide Anion Gap BUN Creatinine Est GFR (CKD-EPI)AfAm Est GFR (CKD-EPI)NonAf POC Glucometer 97 Random Glucose Hemoglobin A1c % Calcium Phosphorus Magnesium Total Bilirubin AST ALT Alkaline Phosphatase Total Protein Albumin COVID-19 (SINDY) Not detected 03/10/20 03/10/20 03/10/20 07:55 07:55 07:55 WBC RBC Hgb Hct MCV MCH MCHC RDW Plt Count MPV PT with INR 11.60 INR 0.98 PTT (Actin FS) 35.3 Sodium 140 Potassium 4.3 Chloride 107 Carbon Dioxide 27 Anion Gap 7 L BUN 14.6 Creatinine 0.9 Est GFR (CKD-EPI)AfAm 116.65 Est GFR (CKD-EPI)NonAf 100.64 POC Glucometer Random Glucose 86 Hemoglobin A1c % 6.0 Calcium 8.8 Phosphorus 3.7 Magnesium 2.1 Total Bilirubin 0.5 AST 18 ALT 31 Alkaline Phosphatase 74 Total Protein 6.4 Albumin 3.3 L COVID-19 (SINDY) 03/10/20 12:20 WBC RBC Hgb Hct MCV MCH MCHC RDW Plt Count MPV PT with INR INR PTT (Actin FS) Sodium Potassium Chloride Carbon Dioxide Anion Gap BUN Creatinine Est GFR (CKD-EPI)AfAm Est GFR (CKD-EPI)NonAf POC Glucometer 70 Random Glucose Hemoglobin A1c % Calcium Phosphorus Magnesium Total Bilirubin AST ALT Alkaline Phosphatase Total Protein Albumin COVID-19 (SINDY) Active Medications Generic Name Dose Route Start Last Admin Trade Name Freq PRN Reason Stop Dose Admin Fentanyl 50 mcg 03/10/20 15:32 Sublimaze Injection - IVPUSH Q5M PRN PAIN-PACU ORDER X 4 DOSES ONLY Cefazolin Sodium 1 gm in 50 mls @ 100 mls/hr 03/10/20 22:00 Ancef 1 Gm Premixed Ivpb - IVPB Q8H-IV ONEIDA Insulin Aspart 1 vial 03/10/20 16:30 Novolog Vial Sliding Scale - SQ TIDAC ONEIDA Protocol Lisinopril 10 mg 03/11/20 10:00 Prinivil PO DAILY ONEIDA Morphine Sulfate 2 mg 03/10/20 15:32 Morphine Sulfate IVPUSH Q4H PRN PAIN LEVEL 7 - 10 Ondansetron HCl 4 mg 03/10/20 15:32 Zofran Injection IVPUSH Q6H PRN NAUSEA AND/OR VOMITING Tamsulosin HCl 0.4 mg 03/11/20 10:00 Flomax - PO DAILY ONEIDA ASSESSMENT/PLAN: 49-year-old male with a history of nephrolithiasis, HTN, diabetes mellitus, diverticulitis status post colostomy presents with complaint of right flank pain found to have nephrolithiasis. #Mild R [place] 2/2 Kidney Stone -White count of 20 on admission, negative urinalysis, S/p Stent 03/10 by Urology. Recs appreciated On cefazolin Continue fluids #Hypertension Continue home lisinopril #Diabetes mellitus A1c 6.0 Hold home metformin Insulin sliding scale #DVT PPX: SCDs #Dispo: Likely D/c tomorrow Visit type - Emergency Visit Emergency Visit: Yes ED Registration Date: 03/09/20 Care time: The patient presented to the Emergency Department on the above date and was hospitalized for further evaluation of their emergent condition. - New Patient This patient is new to me today: Yes Date on this admission: 03/10/20 - Critical Care Critical Care patient: No - Discharge Referral Referred to [facility] No ATTENDING PHYSICIAN STATEMENT I saw and evaluated the patient. I reviewed the resident's note and discussed the case with the resident. I agree with the resident's findings and plan as documented. SUBJECTIVE: OBJECTIVE: ASSESSMENT AND PLAN:
[2020-03-10] MEDS: MORPHINE SULFATE 2 MG/ML VIAL IVPUSH PRN ×2 (18:34→23:15)
[2020-03-10] MEDS: CEFAZOLIN 1 GM/D5W 1 GM/50 ML BAG IVPB SCH (21:48)
[2020-03-10] MEDS ORDERED: CEFAZOLIN 1 GM/D5W 1 GM/50 ML BAG IVPB SCH (22:00)
[2020-03-11] MEDS: MORPHINE SULFATE 2 MG/ML VIAL IVPUSH PRN ×3 (03:01→12:43)
[2020-03-11] MEDS: INSULIN SLIDING SCALE (NOVOLOG) 1 VIAL SQ SCH ×2 (07:21→11:50)
[2020-03-11 07:27] LABS: HEMATOCRIT 39.7 % (35.4-49); HEMOGLOBIN 13.2 GM/dL (11.7-16.9); MCH 28.1 pg (25.7-33.7); MCHC 33.2 g/dl (32.0-35.9); MEAN CELL VOLUME 84.6 fl (80-96); MEAN PLT VOLUME 10.3 fl (7.5-11.1); PLATELET COUNT 222 K/MM3 (134-434); RBC 4.69 M/mm3 (4.00-5.60); RDW 13.1 % (11.9-15.9); WHITE BLOOD COUNT 12.3 K/mm3 (4.0-10.0)
[2020-03-11 07:59] LABS: BLOOD UREA NITROGEN 11.4 mg/dL (7-18); CALCIUM 8.6 mg/dL (8.5-10.1); CREATININE 0.9 mg/dL (0.55-1.3); MAGNESIUM 2.1 mg/dL (1.8-2.4); PHOSPHOROUS 3.4 mg/dL (2.5-4.9); POTASSIUM 4.2 mmol/L (3.5-5.1)
[2020-03-11] MEDS: LISINOPRIL 10 MG TABLET PO SCH ×2 (08:14→09:23)
[2020-03-11] MEDS: TAMSULOSIN HCL 0.4 MG CAP PO SCH ×2 (08:14→09:23)
--- NOTE | 2020-03-11 08:43 | PN ---
Teaching Attending Note Name of Resident: Jj Bird ATTENDING PHYSICIAN STATEMENT I saw and evaluated the patient. I reviewed the resident's note and discussed the case with the resident. I agree with the resident's findings and plan as documented. SUBJECTIVE: Patient seen and examined at bedside, p/w R flank pain 2/2 renal stone. VSS. OBJECTIVE: GENERAL: The patient is awake, alert, and fully oriented, in no acute distress. HEAD: Normocephalic, atraumatic. EYES: PERRL, extraocular movements intact, sclera anicteric, conjunctiva clear. ENT: Oropharynx clear, without erythema or exudates. Moist mucous membranes. NECK: Trachea midline, full range of motion. Supple without lymphadenopathy. LUNGS: Breath sounds equal, clear to auscultation bilaterally. No wheezes, no crackles. No accessory muscle use. HEART: Regular rate and rhythm. S1, S2 without murmur, rub or gallop. ABDOMEN: Obese abdomen. Soft, nontender to light and deep palpation x4 quadrants. No rebound tenderness, no guarding. Normoactive bowel sounds x4 quadrants. Colostomy bag in situ. Negative suprapubic tenderness. Negative CVA tenderness (however patient has received Morphine prior to my exam). EXTREMITIES: 2+ radial, dorsalis pedis pulses bilaterally. Warm, well-perfused. No lower extremity edema bilaterally. NEUROLOGICAL: Cranial nerves II through XII grossly intact. Normal speech. No gross focal deficits. PSYCH: Normal mood, normal affect upon my encounter. SKIN: Warm, dry. Midline vertical abdominal scar well healed, intact. Left lower quadrant scar from prior colostomy. ASSESSMENT AND PLAN: 49 M R renal stone HTN HLD T2DM UTI Diverticulitis s/p colostomy Plan: Flomax, IVF, abx Strain urine, send urine cx/blood cx Urology evaluation Replace electrolytes DVT ppx: Heparin SC
[2020-03-11] MEDS: CEFAZOLIN 1 GM/D5W 1 GM/50 ML BAG IVPB SCH (10:52)
--- NOTE | 2020-03-11 12:24 | PN ---
Progress Note, Physician - Current Medication List Current Medications: Active Medications Fentanyl (Sublimaze Injection -) 50 mcg IVPUSH Q5M PRN PRN Reason: PAIN-PACU ORDER X 4 DOSES ONLY Cefazolin Sodium (Ancef 1 Gm Premixed Ivpb -) 1 gm in 50 mls @ 100 mls/hr IVPB Q8H-IV ONEIDA Last Admin: 03/11/20 10:52 Dose: 100 mls/hr Documented by: Insulin Aspart (Novolog Vial Sliding Scale -) 1 vial SQ TIDAC [facility]; Protocol Last Admin: 03/11/20 11:50 Dose: Not Given Documented by: Lisinopril (Prinivil) 10 mg PO DAILY [facility] Last Admin: 03/11/20 09:23 Dose: Not Given Documented by: Morphine Sulfate (Morphine Sulfate) 2 mg IVPUSH Q4H PRN PRN Reason: PAIN LEVEL 7 - 10 Last Admin: 03/11/20 08:13 Dose: 2 mg Documented by: Ondansetron HCl (Zofran Injection) 4 mg IVPUSH Q6H PRN PRN Reason: NAUSEA AND/OR VOMITING Tamsulosin HCl (Flomax -) 0.4 mg PO DAILY [facility] Last Admin: 03/11/20 09:23 Dose: Not Given Documented by: - Objective Vital Signs: Vital Signs Temperature 98.6 F 03/11/20 10:11 Pulse Rate 69 03/11/20 10:11 Respiratory Rate 18 03/11/20 10:11 Blood Pressure 133/85 03/11/20 10:11 O2 Sat by Pulse Oximetry (%) 98 03/11/20 10:11 Labs: CBC, BMP 03/11/20 07:06 03/11/20 07:06 INR, PTT INR 0.98 (0.83-1.09) 03/10/20 07:55
[2020-03-11 14:34] VITALS: BP 135/81; PULSE 66; TEMP 98.4
--- NOTE | 2020-03-11 15:08 | PN ---
Teaching Attending Note Name of Resident: Chance Ramirez ATTENDING PHYSICIAN STATEMENT I saw and evaluated the patient. I reviewed the resident's note and discussed the case with the resident. I agree with the resident's findings and plan as documented. SUBJECTIVE: Seen and examined at bedside. Patient reports right flank pain while urinating which resolves afterwards. Per urology medically cleared for discharge. Will discharge on ketorolac p.o., nitrofurantoin, and oxybutynin. Patient will follow-up with Dr. Ramirez as an outpatient for further management OBJECTIVE Last Vital Signs Temp Pulse Resp BP Pulse Ox 98.4 F 66 18 135/81 98 03/11/20 14:32 03/11/20 14:32 03/11/20 14:32 03/11/20 14:32 03/11/20 10:11 PE: Per resident note Labs/Imaging: reviewed ASSESSMENT/PLAN 49-year-old male with a history of nephrolithiasis, HTN, diabetes mellitus, diverticulitis status post colostomy presents with complaint of right flank pain found to have nephrolithiasis.Patient had a white count of 20. Seen by urology who did lithotripsy and stenting. Patient recovered without complications. Patient is medically cleared for discharge.
[2020-03-11] MEDS ORDERED: KETOROLAC TROMETHAMINE 15 MG/ML VIAL IVPUSH ONE (15:16)
--- NOTE | 2020-03-11 17:29 | DS ---
Physical Exam: SUBJECTIVE: Patient seen and examined at bedside. Endorses some pain when urinating. No acute events overnight. Afebrile. OBJECTIVE: Vital Signs Period Temp Pulse Resp BP Sys/Orta Pulse Ox Last 24 Hr 97.6 F-98.7 F 66-78 18-18 118-140/68-97 93-98 PHYSICAL EXAM GENERAL: No acute distress HEAD: Normal with no signs of trauma. EYES: EOMI Sclera Clear ENT: MMM NECK: Trachea midline, full range of motion, supple. LUNGS: CTAB. HEART: RRR No MRG S1S2 ABDOMEN: Some Suprapubic tenderness. Colostomy. EXTREMITIES: No CCE NEUROLOGICAL: Cranial nerves II through XII grossly intact. . LABS Laboratory Results - last 24 hr 03/11/20 03/11/20 03/11/20 07:06 07:06 07:07 WBC 12.3 H RBC 4.69 Hgb 13.2 Hct 39.7 MCV 84.6 MCH 28.1 MCHC 33.2 RDW 13.1 Plt Count 222 MPV 10.3 Sodium 138 Potassium 4.2 Chloride 106 Carbon Dioxide 26 Anion Gap 6 L BUN 11.4 Creatinine 0.9 Est GFR (CKD-EPI)AfAm 116.65 Est GFR (CKD-EPI)NonAf 100.64 POC Glucometer 92 Random Glucose 91 Calcium 8.6 Phosphorus 3.4 Magnesium 2.1 03/11/20 11:48 WBC RBC Hgb Hct MCV MCH MCHC RDW Plt Count MPV Sodium Potassium Chloride Carbon Dioxide Anion Gap BUN Creatinine Est GFR (CKD-EPI)AfAm Est GFR (CKD-EPI)NonAf POC Glucometer 84 Random Glucose Calcium Phosphorus Magnesium HOSPITAL COURSE: Date of Admission:03/09/20 49-year-old male with a history of nephrolithiasis, HTN, diabetes mellitus, diverticulitis status post colostomy presented with complaint of right flank pain found to have nephrolithiasis. CTAP revealed a 0.4 cm proximal right ureteral calculus with resultant mild hydro. WBC on admission was 20.6. Patient was placed on Ancef and evaluated by Urology. Patient subsequently underwent a cysto, rt. retro, rt. stone manipulation and stent placement. Patient was discharged with 10 day prescription of Macrobid 100 BID for 10 days, Oxybutynin for bladder spasms 2/2 stent placement, and Ketorolac 10 MG for analgesia. Patient informed to follow up with Urology for evaluation and stent removal. Date of Discharge: 03/11/20 Minutes to complete discharge: 35 Discharge Summary Problems reviewed: Yes Reason For Visit: CALCULUS OF KIDNEY Current Active Problems Kidney stone (Acute) Leukocytosis (Acute) Perinephric fluid collection (Acute) Condition: Improved - Instructions Diet, Activity, Other Instructions: You presented to the emergency department due to abdominal and back pain. You were found to have a kidney stone and water build up in your right kidney. You underwent a stent placement to relive the obstruction. Please follow up with your Urologist in 1 week. You will be discharged home on 3 new medications: Macrobid 100 mg TWICE per day for 10 days. Please start your first dose this evening 03/11/2020. Oxybutynin 10 mg Daily. this will help with any bladder spasms you may encounter due to stent placement. Ketorolac 10 mg every 6 hours as needed for pain. Do NOT exceed more than 40 mg Daily. Please return to the Emergency Department if you develop fever, chills, shortness of breath, chest pain, nausea/vomiting, or any other abnormal symptoms. We have attached some surgery referrals as you have stated you would be interested in seeing a surgeon for possible bariatric surgery and colostomy reversal . Referrals: Zack Manrique MD [Staff Physician] - (Bariatric Surgeon ) Ariel Garvin MD [Staff Physician] - (General Surgeon ) Eber Gallegos PA [Primary Care Provider] - Murali Walter MD [Staff Physician] - 1 Week Disposition: HOME - Home Medications Comprehensive Discharge Medication List: Ambulatory Orders Lisinopril [Zestril] 10 mg PO DAILY 01/15/16 Tamsulosin HCl 0.4 mg PO DAILY 03/09/20 metFORMIN HCL [Metformin HCl] 500 mg PO BID 03/09/20 Ketorolac Tromethamine 10 mg PO Q6H #12 tablet 03/11/20 Nitrofurantoin Monohyd/M-Cryst [Macrobid -] 100 mg PO BID #20 capsule 03/11/20 Oxybutynin Chloride [Oxybutynin Chloride ER] 10 mg PO DAILY #7 tab.er.24 03/11/20 This patient is new to me today: No Emergency Visit: Yes ED Registration Date: 10/06/20 Care time: The patient presented to the Emergency Department on the above date and was hospitalized for further evaluation of their emergent condition. Critical Care patient: No - Discharge Referral Referred to [facility] No ATTENDING PHYSICIAN STATEMENT I saw and evaluated the patient. I reviewed the resident's note and discussed the case with the resident. I agree with the resident's findings and plan as documented. SUBJECTIVE: OBJECTIVE: ASSESSMENT AND PLAN:
--- NOTE | 2020-03-21 13:42 | OP ---
DATE OF OPERATION: 03/10/2020 PREOPERATIVE DIAGNOSIS: Nephrolithiasis, right hydronephrosis, right upper ureteral stone. OPERATIVE PROCEDURE: Cystourethroscopy, right retrograde pyelogram, right stone manipulation and placement of a right JJ stent. ANESTHESIA: Spinal. ESTIMATED BLOOD LOSS: There was no blood loss. SURGEON: Morteza Ramirez MD DESCRIPTION OF PROCEDURE: Under above-stated anesthesia patient was prepped and draped in the usual sterile manner. He was placed in the dorsal lithotomy position. A 30-degree continuous flow cystoscope was introduced under direct vision. Anterior urethra was within normal limits. Prostatic urethra revealed mild prostatic hypertrophy with bilateral lateral lobe kissing. The bladder was entered. Urine was collected for C&S and cytology. Inspection of the bladder revealed a grade 1 fine trabeculation. No lesions were noted. No calculi were seen. Ureteral orifices were within normal limits with efflux of clear urine from the left. None was seen from the right. A Flexi-Tip catheter was placed into the right ureteral orifice and 7 mL of contrast were injected. Overhead fluoroscopic x-rays were taken. This revealed a normal lower ureter with a blockage at the level of the ureteropelvic junction. There was proximal calyceal dilation due to the obstruction. Therefore, a Glidewire was passed up the right renal unit. Cystoscope was removed. A semirigid ureteroscope was inserted. Ureteroscopy was performed in the usual fashion. Lower ureter was within normal limits. Middle ureter was within normal limits. Upper ureter revealed complete occlusion of the lumen at the level of the ureteropelvic junction. On advancing the ureteroscope close to the stone, the stone retracted and fell into the lower calyx. This was unable to be accessed. The rest of the pelvis was clean. No lesions or calculi were seen. The ureteroscope was then removed. A 24-cm 6-[place] JJ stent was left in place. X-rays confirmed good position of the stent. The bladder was emptied. The scope was removed. The patient tolerated the procedure well. He returned to the recovery room in good condition. Nando [id number]
== END 2020-03-11 18:20 | disposition home or self-care (01) | DRG 463 ==
LOC: JER 08:34 → JERBED 13:27 → J6S 15:52
PROVIDERS: ATTEND Internal Medicine
PROC: 0T768DZ Dilation of Right Ureter with Intraluminal Device, Via Natural or Artificial Opening Endoscopic (ICD-10-PCS; principal; 2020-03-10 13:30)
PROC: BT1DZZZ Fluoroscopy of Right Kidney, Ureter and Bladder (ICD-10-PCS; 2020-03-10 13:30)
DX: N13.6 Pyonephrosis (principal); E11.9 Type 2 diabetes mellitus without complications; I10 Essential (primary) hypertension; Z93.3 Colostomy status; E66.01 Morbid (severe) obesity due to excess calories; Z68.41 Body mass index [BMI] 40.0-44.9, adult; D72.829 Elevated white blood cell count, unspecified; E78.5 Hyperlipidemia, unspecified
CPT/HCPCS: 36415; 71046-TC-FY; 74177-TC; 76000-TC-FY; 76775-TC; 80048; 80053; 81003; 82010; 82550; 82962; 83036; 83605; 83690; 83735; 84100; 84484; 85025; 85027; 85610; 85730; 86850; 86900; 86901; 87040; 87086; 93005; 93010; 94760; 99285-25; C9803; Q9967; U0003

== ENCOUNTER 2023-05-09 03:02 | Inpatient (IN) | payer OTHER ==
[2023-05-09 03:12] VITALS: BMI 46.9
[2023-05-09] MEDS ORDERED: ACETAMINOPHEN 1000 MG/100 ML BAG IVPB ONE (03:57)
[2023-05-09] MEDS ORDERED: ONDANSETRON 4 MG/2 ML VIAL IVPUSH ONE (03:57)
[2023-05-09] MEDS ORDERED: ACETAMINOPHEN INJECTION 100 ML IVPB ONE (04:16)
[2023-05-09] MEDS ORDERED: ONDANSETRON 4 MG/2 ML VIAL ONE (04:16)
[2023-05-09 04:49] LABS: BASO % 0.5 % (0-2.0); EOS % 1.3 % (0-4.5); HEMATOCRIT 44.2 % (35.4-49); HEMOGLOBIN 14.3 GM/dL (11.7-16.9); MCHC 32.4 g/dl (32.0-35.9); MEAN CELL VOLUME 83.4 fl (80-96); MEAN PLT VOLUME 9.9 fl (7.5-11.1); MONO % 4.6 % (3.8-10.2); NEUT % 81.6 % (42.8-82.8); PLATELET COUNT 256 10^3/uL (134-434); RDW 13.7 % (11.9-15.9); WHITE BLOOD COUNT 17.6 K/mm3 (4.0-10.0)
[2023-05-09 04:52] LABS: INR 1.1 (0.83-1.09); PROTHROMBIN TIME (PATIENT) 12.8 SEC (9.7-13.0)
[2023-05-09 04:54] LABS: POTASSIUM 4.1 mmol/L (3.5-5.1)
[2023-05-09 04:55] LABS: ACTIVATED PTT 34.5 SECONDS (25.2-36.5)
[2023-05-09 04:56] LABS: ALBUMIN 3.7 g/dl (3.4-5.0); CALCIUM 9.2 mg/dL (8.5-10.1)
[2023-05-09 04:57] LABS: BLOOD UREA NITROGEN 14.7 mg/dL (7-18)
[2023-05-09 04:59] LABS: CREATININE 1.1 mg/dL (0.55-1.3)
[2023-05-09 05:01] LABS: BILIRUBIN,TOTAL 0.5 mg/dL (0.2-1); TOT PROT 7.3 g/dl (6.4-8.2)
[2023-05-09] MEDS ORDERED: morphine CARPU-JECT 2 MG/1 ML DISP.SYRIN IVPUSH ONE (06:10)
[2023-05-09] MEDS ORDERED: SODIUM CHLORIDE 0.9% 500 ML INFUS.BAG IV ONE (06:20)
[2023-05-09] MEDS ORDERED: ELECTROLYTE-148 SOLN 500 ML IV ONE ×2 (09:31→09:33)
[2023-05-09] MEDS: LACTATED RINGERS SOLUTION 1,000 ML/1,000 ML INFUS.BAG IV SCH ×2 (11:27→22:50)
[2023-05-09] MEDS: INSULIN SLIDING SCALE (NOVOLOG) 1 VIAL SQ SCH ×2 (17:02→21:31)
[2023-05-10] MEDS: ONDANSETRON 4 MG/2 ML VIAL IVPUSH PRN ×2 (02:51→09:37)
[2023-05-10] MEDS: INSULIN SLIDING SCALE (NOVOLOG) 1 VIAL SQ SCH ×4 (06:48→21:29)
[2023-05-10] MEDS: LACTATED RINGERS SOLUTION 1,000 ML/1,000 ML INFUS.BAG IV SCH ×2 (07:06→12:07)
[2023-05-10 08:37] LABS: BASO % 0.4 % (0-2.0); EOS % 1.9 % (0-4.5); HEMATOCRIT 39.3 % (35.4-49); HEMOGLOBIN 13.1 GM/dL (11.7-16.9); LYMPH % 13.9 % (8-40); MCH 27.9 pg (25.7-33.7); MCHC 33.2 g/dl (32.0-35.9); MEAN CELL VOLUME 83.8 fl (80-96); MEAN PLT VOLUME 10.3 fl (7.5-11.1); NEUT % 76.8 % (42.8-82.8); PLATELET COUNT 243 10^3/uL (134-434); RBC 4.69 M/mm3 (4.00-5.60); RDW 14.1 % (11.9-15.9); WHITE BLOOD COUNT 14.3 K/mm3 (4.0-10.0)
[2023-05-10 09:02] LABS: POTASSIUM 4.1 mmol/L (3.5-5.1)
[2023-05-10 09:05] LABS: CALCIUM 8.7 mg/dL (8.5-10.1)
[2023-05-10 09:06] LABS: ALBUMIN 3.1 g/dl (3.4-5.0); MAGNESIUM 2.1 mg/dL (1.8-2.4)
[2023-05-10 09:09] LABS: CREATININE 0.9 mg/dL (0.55-1.3); PHOSPHOROUS 3.9 mg/dL (2.5-4.9)
[2023-05-10 09:10] LABS: BILIRUBIN,TOTAL 0.7 mg/dL (0.2-1)
[2023-05-10 09:11] LABS: TOT PROT 6.3 g/dl (6.4-8.2)
[2023-05-10] MEDS: DEXTROSE 5%-NORMAL SALINE 1,000 ML IV SCH (17:56)
[2023-05-10 20:55] LABS: URINE APPEARANCE CLEAR; URINE BILIRUBIN NEGATIVE (NEGATIVE); URINE COLOR YELLOW; URINE GLUCOSE (UA) NEGATIVE (NEGATIVE); URINE KETONE TRACE (NEGATIVE); URINE LEUK ESTERASE NEGATIVE (NEGATIVE); URINE NITRITE NEGATIVE (NEGATIVE); URINE PROTEIN NEGATIVE (NEGATIVE); URINE UROBILINOGEN 0.2 mg/dL (0.2-1.0)
[2023-05-11] MEDS: INSULIN SLIDING SCALE (NOVOLOG) 1 VIAL SQ SCH ×4 (08:03→22:19)
[2023-05-11 09:22] LABS: INR 1.08 (0.83-1.09); PROTHROMBIN TIME (PATIENT) 12.5 SEC (9.7-13.0)
[2023-05-11 09:29] LABS: BASO % 0.3 % (0-2.0); EOS % 3.1 % (0-4.5); HEMATOCRIT 40.3 % (35.4-49); HEMOGLOBIN 13.2 GM/dL (11.7-16.9); MCH 27.5 pg (25.7-33.7); MCHC 32.7 g/dl (32.0-35.9); MEAN CELL VOLUME 83.9 fl (80-96); MEAN PLT VOLUME 10.2 fl (7.5-11.1); MONO % 6.9 % (3.8-10.2); NEUT % 70.7 % (42.8-82.8); PLATELET COUNT 239 10^3/uL (134-434); RBC 4.81 M/mm3 (4.00-5.60); RDW 13.9 % (11.9-15.9); WHITE BLOOD COUNT 12.5 K/mm3 (4.0-10.0)
[2023-05-11 09:31] LABS: POTASSIUM 4.1 mmol/L (3.5-5.1)
[2023-05-11 09:35] LABS: ALBUMIN 3.2 g/dl (3.4-5.0); BLOOD UREA NITROGEN 13.4 mg/dL (7-18); CALCIUM 8.5 mg/dL (8.5-10.1)
[2023-05-11 09:37] LABS: MAGNESIUM 2.3 mg/dL (1.8-2.4)
[2023-05-11 09:38] LABS: CREATININE 0.9 mg/dL (0.55-1.3)
[2023-05-11 09:40] LABS: BILIRUBIN,TOTAL 0.4 mg/dL (0.2-1); TOT PROT 6.4 g/dl (6.4-8.2)
[2023-05-11] MEDS: DEXTROSE 5%-NORMAL SALINE 1,000 ML IV SCH ×2 (09:56→23:06)
[2023-05-11] MEDS ORDERED: ACETAMINOPHEN 1000 MG/100 ML BAG IVPB PRN (12:33)
[2023-05-12] MEDS: INSULIN SLIDING SCALE (NOVOLOG) 1 VIAL SQ SCH ×4 (07:51→21:51)
[2023-05-12 08:31] LABS: BASO % 0.4 % (0-2.0); HEMATOCRIT 37.7 % (35.4-49); HEMOGLOBIN 12.5 GM/dL (11.7-16.9); LYMPH % 22.5 % (8-40); MCH 28.1 pg (25.7-33.7); MCHC 33.1 g/dl (32.0-35.9); MEAN CELL VOLUME 84.8 fl (80-96); MEAN PLT VOLUME 10.3 fl (7.5-11.1); MONO % 6.7 % (3.8-10.2); NEUT % 67.4 % (42.8-82.8); PLATELET COUNT 221 10^3/uL (134-434); RBC 4.45 M/mm3 (4.00-5.60); RDW 13.7 % (11.9-15.9); WHITE BLOOD COUNT 11.9 K/mm3 (4.0-10.0)
[2023-05-12 08:47] LABS: POTASSIUM 3.8 mmol/L (3.5-5.1)
[2023-05-12 08:54] LABS: ALBUMIN 3.1 g/dl (3.4-5.0); BLOOD UREA NITROGEN 10.6 mg/dL (7-18); MAGNESIUM 2.2 mg/dL (1.8-2.4)
[2023-05-12 08:57] LABS: CREATININE 0.9 mg/dL (0.55-1.3); TOT PROT 6.2 g/dl (6.4-8.2)
[2023-05-12 08:59] LABS: BILIRUBIN,TOTAL 0.6 mg/dL (0.2-1)
[2023-05-12] MEDS: DEXTROSE 5%-NORMAL SALINE 1,000 ML IV SCH (18:03)
[2023-05-12] MEDS ORDERED: INSULIN (NOVOLOG) ASPART 100 UNITS/ML 10ML VIAL ONE (21:20)
[2023-05-13] MEDS: INSULIN SLIDING SCALE (NOVOLOG) 1 VIAL SQ SCH ×4 (06:53→22:15)
[2023-05-13 07:58] LABS: BASO % 0.3 % (0-2.0); EOS % 3.4 % (0-4.5); HEMATOCRIT 39.3 % (35.4-49); HEMOGLOBIN 12.5 GM/dL (11.7-16.9); LYMPH % 20.9 % (8-40); MCH 27.1 pg (25.7-33.7); MCHC 31.9 g/dl (32.0-35.9); MEAN CELL VOLUME 84.9 fl (80-96); MEAN PLT VOLUME 10.3 fl (7.5-11.1); MONO % 6.8 % (3.8-10.2); NEUT % 68.6 % (42.8-82.8); PLATELET COUNT 229 10^3/uL (134-434); RBC 4.63 M/mm3 (4.00-5.60); RDW 13.6 % (11.9-15.9); WHITE BLOOD COUNT 12.3 K/mm3 (4.0-10.0)
[2023-05-13 08:21] LABS: POTASSIUM 3.9 mmol/L (3.5-5.1)
[2023-05-13 08:30] LABS: CALCIUM 8.1 mg/dL (8.5-10.1); MAGNESIUM 2.3 mg/dL (1.8-2.4)
[2023-05-13 08:32] LABS: BLOOD UREA NITROGEN 7.5 mg/dL (7-18); CREATININE 0.9 mg/dL (0.55-1.3)
[2023-05-13 08:33] LABS: BILIRUBIN,TOTAL 0.5 mg/dL (0.2-1)
[2023-05-13] MEDS ORDERED: PATIENT'S OWN MEDICATION (NON-FORMULARY) (Lisinopril/Hydrochlorothiazide [Lisinopril-Hctz PO SCH (10:00)
[2023-05-13] MEDS: HYDROCHLOROTHIAZIDE 12.5 MG CAPSULE (FP) PO SCH (12:50)
[2023-05-13] MEDS: LISINOPRIL 20 MG TABLET PO SCH (12:50)
[2023-05-13] MEDS: DEXTROSE 5%-NORMAL SALINE 1,000 ML IV SCH (15:09)
[2023-05-14] MEDS: INSULIN SLIDING SCALE (NOVOLOG) 1 VIAL SQ SCH ×3 (06:41→17:58)
[2023-05-14 08:55] LABS: BASO % 0.4 % (0-2.0); EOS % 3.1 % (0-4.5); HEMATOCRIT 41.4 % (35.4-49); HEMOGLOBIN 13.4 GM/dL (11.7-16.9); LYMPH % 20.4 % (8-40); MCH 27.4 pg (25.7-33.7); MCHC 32.3 g/dl (32.0-35.9); MEAN CELL VOLUME 84.8 fl (80-96); MEAN PLT VOLUME 10.5 fl (7.5-11.1); MONO % 6.2 % (3.8-10.2); NEUT % 69.9 % (42.8-82.8); PLATELET COUNT 254 10^3/uL (134-434); RBC 4.89 M/mm3 (4.00-5.60); RDW 13.7 % (11.9-15.9); WHITE BLOOD COUNT 11.5 K/mm3 (4.0-10.0)
[2023-05-14] MEDS: LISINOPRIL 20 MG TABLET PO SCH (09:06)
[2023-05-14] MEDS: HYDROCHLOROTHIAZIDE 12.5 MG CAPSULE (FP) PO SCH (09:06)
[2023-05-14 09:15] LABS: POTASSIUM 3.8 mmol/L (3.5-5.1)
[2023-05-14 09:18] LABS: ALBUMIN 3.4 g/dl (3.4-5.0); BLOOD UREA NITROGEN 7.2 mg/dL (7-18)
[2023-05-14 09:20] LABS: CALCIUM 8.6 mg/dL (8.5-10.1); MAGNESIUM 2.2 mg/dL (1.8-2.4)
[2023-05-14 09:21] LABS: CREATININE 0.9 mg/dL (0.55-1.3)
[2023-05-14 09:23] LABS: TOT PROT 6.7 g/dl (6.4-8.2)
[2023-05-14 15:57] VITALS: BP 112/76; PULSE 59; RESP 18; TEMP 98
== END 2023-05-14 18:49 | disposition home or self-care (01) | DRG 254 ==
LOC: JER 03:02 → JERBED 07:06 → J8W 17:43
PROVIDERS: ADMIT Internal Medicine; ATTEND Nurse Practitioner Family
DX: K43.6 Other and unspecified ventral hernia with obstruction, without gangrene (principal); E11.65 Type 2 diabetes mellitus with hyperglycemia; K76.0 Fatty (change of) liver, not elsewhere classified; E66.01 Morbid (severe) obesity due to excess calories; Z68.42 Body mass index [BMI] 45.0-49.9, adult; I10 Essential (primary) hypertension; Z93.3 Colostomy status
CPT/HCPCS: 36415; 71045-TC-FY; 74018-TC-FY; 74019-TC-FY; 74177-TC; 80053; 80061; 81003; 82962; 83036; 83605; 83690; 83735; 84100; 85025; 85610; 85730; 86850; 86900; 86901; 87040; 87086; 93005; 93010; 97116-GP; 97161-GP; 99285-25; Q9967

== ENCOUNTER 2023-09-02 01:14 | Emergency (ER) | payer OTHER ==
[2023-09-02 01:29] VITALS: BMI 45.3
[2023-09-02] MEDS ORDERED: ACETAMINOPHEN INJECTION 100 ML IVPB ONE (02:32)
[2023-09-02] MEDS ORDERED: FAMOTIDINE 20 MG/50 ML IVPB 20 MG/50 ML MG IVPB ONE (02:33)
[2023-09-02] MEDS ORDERED: PANTOPRAZOLE SODIUM 40 MG VIAL ONE (02:33)
[2023-09-02] MEDS ORDERED: ONDANSETRON 4 MG/2 ML VIAL ONE (02:33)
[2023-09-02] MEDS: ONDANSETRON 4 MG/2 ML VIAL IVPUSH ONE (03:02)
[2023-09-02] MEDS: PANTOPRAZOLE SODIUM 40 MG VIAL IVPUSH ONE (03:02)
[2023-09-02] MEDS: ACETAMINOPHEN 1000 MG/100 ML BAG IVPB ONE (03:02)
[2023-09-02] MEDS: FAMOTIDINE 20 MG/50 ML IVPB 20 MG/50 ML MG IVPB ONE (03:02)
[2023-09-02 03:09] LABS: BASO % 0.4 % (0-2.0); EOS % 2.7 % (0-4.5); HEMATOCRIT 42.6 % (35.4-49); LYMPH % 23.4 % (8-40); MCH 27.3 pg (25.7-33.7); MCHC 32.9 g/dl (32.0-35.9); MEAN CELL VOLUME 83.2 fl (80-96); MEAN PLT VOLUME 9.8 fl (7.5-11.1); MONO % 6.8 % (3.8-10.2); NEUT % 66.7 % (42.8-82.8); PLATELET COUNT 252 10^3/uL (134-434); RBC 5.12 M/mm3 (4.00-5.60); RDW 13.4 % (11.9-15.9); WHITE BLOOD COUNT 13.5 K/mm3 (4.0-10.0)
[2023-09-02 03:28] LABS: INR 0.97 (0.83-1.09); PROTHROMBIN TIME (PATIENT) 11.3 SEC (9.7-13.0)
[2023-09-02 03:30] LABS: ACTIVATED PTT 33.5 SECONDS (25.2-36.5)
[2023-09-02 03:33] LABS: POTASSIUM 4.2 mmol/L (3.5-5.1)
[2023-09-02 03:36] LABS: ALBUMIN 3.5 g/dl (3.4-5.0); CALCIUM 9.9 mg/dL (8.5-10.1)
[2023-09-02 03:41] LABS: BILIRUBIN,TOTAL 0.2 mg/dL (0.2-1); TOT PROT 7.2 g/dl (6.4-8.2)
[2023-09-02 04:19] LABS: LACTIC ACID 2.1 mmol/L (0.4-2.0)
[2023-09-02 06:19] VITALS: BP 126/83; PULSE 74; RESP 18; TEMP 97.8
[2023-09-02] MEDS: SODIUM CHLORIDE 0.9% 500 ML INFUS.BAG IV ONE (08:42)
== END 2023-09-02 10:03 | disposition home or self-care (01) ==
LOC: JER 01:14
PROC: 3E033GC Introduction of Other Therapeutic Substance into Peripheral Vein, Percutaneous Approach (ICD-10-PCS; principal; 2023-09-02)
PROC: 3E030GC Introduction of Other Therapeutic Substance into Peripheral Vein, Open Approach (ICD-10-PCS; 2023-09-02)
PROC: 3E030GC Introduction of Other Therapeutic Substance into Peripheral Vein, Open Approach (ICD-10-PCS; 2023-09-02)
PROC: 3E030GC Introduction of Other Therapeutic Substance into Peripheral Vein, Open Approach (ICD-10-PCS; 2023-09-02)
DX: R10.11 Right upper quadrant pain (principal); R11.0 Nausea
CPT/HCPCS: 36415; 74177-TC; 76705-TC; 80053; 83605; 83690; 85025; 85610; 85730; 86850; 86900; 86901; 93005; 93010; 99285-25; J0131; Q9967

== ENCOUNTER 2024-12-09 07:10 | Day surgery (SDC) | payer OTHER ==
[2024-12-03 10:43] VITALS: BMI 45.6
[2024-12-09 06:45] VITALS: RESP 18
[2024-12-09] MEDS ORDERED: MIDAZOLAM HCL 2 MG/2 ML SINGLE DOSE VIAL ONE (07:33)
[2024-12-09] MEDS ORDERED: PROPOFOL 20 ML ONE (07:37)
[2024-12-09 10:01] VITALS: BP 116/70; PULSE 67; TEMP 97.5
== END 2024-12-09 09:30 | disposition home or self-care (01) ==
LOC: JASU-SURG 07:10
PROVIDERS: ATTEND Urology
PROC: 0TF3XZZ Fragmentation in Right Kidney Pelvis, External Approach (ICD-10-PCS; principal; 2024-12-09 08:15)
DX: N20.0 Calculus of kidney (principal)
CPT/HCPCS: 82962